=== PATIENT | female | born 1945 | race Caucasian/White ===

== ENCOUNTER 2017-04-24 23:19 | Inpatient (IN) | payer MEDICARE, MEDICAID ==
[2017-04-25] MEDS ORDERED: Labetalol HCl 100 MG/20 ML VIAL ONE (00:19)
[2017-04-25 01:04] LABS: Troponin I 0.029 ng/mL (< 0.028)
[2017-04-25 01:32] VITALS: BMI 45.8
[2017-04-25] MEDS ORDERED: Ondansetron ODT 4 MG TAB SL PRN (02:06)
[2017-04-25] MEDS ORDERED: Acetaminophen 325 MG TAB PO PRN (02:06)
[2017-04-25] MEDS ORDERED: Ondansetron HCl/PF 4 MG/2 ML Vial IVP PRN (02:06)
[2017-04-25] MEDS ORDERED: Milk Of Magnesia 30 ML UDCUP PO PRN (02:19)
[2017-04-25] MEDS ORDERED: Senokot 8.6 MG TAB PO PRN (02:19)
[2017-04-25] MEDS ORDERED: Albuterol Sulfate 2.5 mg/3 ml Neb NEB PRN (02:32)
[2017-04-25] MEDS ORDERED: Carvedilol 25 MG TAB PO SCH (02:45)
[2017-04-25] MEDS ORDERED: Labetalol HCl 100 MG/20 ML VIAL SLOW IVP PRN (03:36)
[2017-04-25 03:39] LABS: #Monocytes 0.2 thou/uL (0.11-0.59); %Basophils 0.3 % (0.0-1.0); %Eosinophils 0.5 % (0.0-10.0); %Lymphocytes 14.1 % (21.0-51.0); %Monocytes 2.3 % (0.0-10.0); Hematocrit 44.5 % (36.0-47.0); Mean Platelet Volume 10.1 fL (7.4-10.4); Red Blood Cell (RBC) Count 5.11 mill/uL (4.20-5.40); White Blood Cell (WBC) Count 7.2 thou/uL (4.8-10.8)
[2017-04-25 03:52] LABS: Troponin I 0.019 ng/mL (< 0.028)
[2017-04-25 04:03] LABS: Phosphorus 3.1 mg/dL (2.3-4.7)
[2017-04-25 04:07] LABS: Anion Gap 15 mmol/L (10-20); BUN (Urea Nitrogen) 13 mg/dL (9.8-20.1); Calc. Creatinine Clearance 155 mL/min (70-130); Calcium 9.3 mg/dL (7.8-10.44); Carbon Dioxide 28 mmol/L (23-31); Chloride 102 mmol/L (98-107); Cholesterol 109 mg/dl (< 200 Desired); Estimated GFR-MDRD Greater than 90; LDL Cholesterol, Calculated 63 mg/dL
[2017-04-25 05:08] LABS: Magnesium 2.3 mg/dL (1.6-2.6)
[2017-04-25] MEDS: Furosemide 40 MG/4 ML VIAL SLOW IVP SCH ×2 (05:50→15:29)
[2017-04-25] MEDS: Potassium Chloride 20 MEQ TAB PO SCH ×2 (08:00→15:27)
[2017-04-25] MEDS ORDERED: Valsartan 80 MG TAB PO SCH ×2 (09:00→18:30)
[2017-04-25] MEDS: Docusate 100 MG CAP PO SCH ×2 (09:06→20:27)
[2017-04-25] MEDS: Carvedilol 25 MG TAB PO SCH ×2 (09:06→20:27)
[2017-04-25] MEDS: Aspirin 325 MG TAB PO SCH (09:06)
[2017-04-25 09:53] LABS: Prothrombin Time 21.5 SEC (12.0-14.7)
[2017-04-25 09:54] LABS: PTT 38.7 SEC (22.9-36.1)
--- NOTE | 2017-04-25 18:37 | HP-2 ---
LOCATION: [facility] in [place], [place] CO-SIGNER: Dr. Veronica Dozier. CODE STATUS: FULL. PRIMARY CARE PHYSICIAN: [facility], Dr. Arely Ames. ATTENDING PHYSICIAN: Dr. Veronica Dozier. RESIDENT PHYSICIAN: Dr. Paul Epstein. HISTORIAN: Patient. CHIEF COMPLAINT: Increasing shortness of breath. HISTORY OF PRESENT ILLNESS: A 71-year-old female with a past medical history of hypertension, hyperl ipidemia prior to CVA and subclinical hyperthyroid presents with a 5-day history of increasing shortn ess of breath, dyspnea on exertion or orthopnea. The patient also reports a recent weight gain, incr eased swelling in bilateral lower extremities. Denies chest pain, nausea, vomiting, diaphoresis, dony rrhea, constipation, abdominal pain, cough, congestion or pleuritic type chest pain. No hemoptysis. Patient reports her signs and symptoms are worse with exertion and relieved with rest. In the ER, t he patient was given 40 mg IV Lasix. PAST MEDICAL HISTORY: 1. Hypertension. 2. Hyperlipidemia. 3. History of cerebrovascular accident. 4. Subclinical hyperthyroid. 5. Depression. PAST SURGICAL HISTORY: 1. Left total knee. 2. Cholecystectomy. 3. Hysterectomy. ALLERGIES: 1. PHENOBARBITAL. 2. TRAMADOL. 3. IBUPROFEN. 4. PHENERGAN. MEDICATIONS: 1. Coreg 12.5 mg p.o. b.i.d. 2. Paxil 20 mg p.o. daily. 3. Zocor 10 mg at bedtime. 4. Amitriptyline 25 mg daily. 5. Paroxetine 20 mg daily. 6. Albuterol nebulizers as needed. 7. Valsartan 160 mg daily. FAMILY HISTORY: Maternal type 2 diabetes. SOCIAL HISTORY: Nonsmoker, nondrinker. Denies drug use now. REVIEW OF SYSTEMS: GENERAL: Patient complains of weight change. Denies fever, chills, night sweats or fatigue. ENT: Denies nasal congestion, rhinorrhea or sore throat. RESPIRATORY: Shortness of breath, exercise intolerance. Denies cough or congestion. CARDIOVASCULAR: Positive chest pain, palpitations. Complains of edema and orthopnea. Denies chest pain, palpitations and paroxysmal nocturnal dyspnea. GASTROINTESTINAL: Denies nausea, vomiting, diarrhea, constipation or abdominal pain. GENITOURINARY: Denies dysuria or polyuria. MUSCULOSKELETAL: Complains of swelling. Denies arthritis or arthralgias. NEUROLOGIC: Denies weakness or syncope. PSYCHIATRIC: Complains of a history of depression, currently controlled. PHYSICAL EXAMINATION: VITAL SIGNS: Blood pressure 178/81, pulse 74, respiratory rate 18, T-max 98.1 and pulse ox 95% on 3 liters nasal cannula. Current weight 121 kilograms. GENERAL: The patient alert and oriented, in no acute distress. Well-developed, obese and appropriat sanjeev interactive. HEENT: Pupils are equal, round and reactive to light with accommodation. Extraocular muscles intact . Conjunctivae within normal limits. NECK: Supple, without lymphadenopathy. No thyromegaly. No evidence of JVD. No hepatojugular reflu x. CARDIAC: Regular rate and rhythm. No murmurs, rubs or gallops. Radial pulse 2+. Pedal pulse 2+. RESPIRATORY: Normal effort. No retractions. Lungs are clear to auscultation bilaterally. ABDOMEN: Soft and nontender. Normoactive bowel sounds in all 4 quadrants. No masses, distention or organomegaly. EXTREMITIES: No clubbing or cyanosis. Patient does have bilateral 2+ pitting edema of the lower ext remities. MUSCULOSKELETAL: Structure within normal limits. Tone within normal limits. NEUROLOGIC: No focal deficits. GCS 15. PSYCHIATRIC: The patient is appropriately interactive. LABORATORY AND IMAGING RESULTS: White blood cells 7.1, hemoglobin 13.5, hematocrit 43.7 and platelet s 222. Sodium 140, potassium 3.8, chloride 101, bicarb 34, BUN 14, creatinine 0.6, glucose 99, calci um 9, total protein 6.6, albumin 3.8, AST 19, ALT 25, alkaline phosphatase 87, total bilirubin 0.9. PT 335, INR is 3.1. Lactic acid 0.8. BNP 235, troponin 0.029. UA showed 1+ blood, 3+ protein, negative leukocyte esterase, negative nitrite, negative ketone, negat rajiv glucose, negative wbc's and negative bacteria. EKG showed T-wave inversion in leads V1 to V6, otherwise, normal sinus rhythm. Chest x-ray showed moderate cardiomegaly with severe congestive changes. ASSESSMENT AND PLAN: 1. Congestive heart failure, new onset acute exacerbation. We will order a morning echocardiogram. The patient will be continued on aspirin, statin, losartan and Coreg. Monitor ins and outs and cont inue IV Lasix 40 mg q.12 hours. We will check daily weight. Repeat daily BMP, check magnesium, phosp horus and TSH level. Trend troponins and repeat morning EKG. 2. Acute hypoxic respiratory failure. The patient's oxygen saturation will be maintained over 90% w ith supplemental O2. We will monitor for increasing requirements and changes in respiratory status. 3. Hypertension. Continue home medications. 4. Hyperlipidemia. Continue home medications. 5. History of cerebrovascular accident. Continue home medications. 6. Depression. Continue home medications. 7. Subclinical hyperthryroid. Check a TSH. 8. Obstructive sleep apnea, on CPAP. We will continue patient as an inpatient. 9. Prophylaxis. Patient anticoagulated with Coumadin, will be placed in sequential compression tam lupe and given Tums p.r.n. for gastrointestinal prophylaxis. DISPOSITION AND LENGTH OF HOSPITAL STAY: Greater than or equal to 2 days. Patient is stable. Symptomatic medications will be provided. History and physical exam as well as management was discussed with Dr. Veronica Dozier, who agrees with the above history, physical exam, assessment and plan otherwise noted in her addendum.
[2017-04-25] MEDS: Simvastatin 20 MG TAB PER TUBE SCH (20:27)
[2017-04-25] MEDS: Amitriptyline HCl 25 MG TAB PO SCH (20:27)
[2017-04-25] MEDS ORDERED: Carvedilol 6.25 MG TAB PO SCH (21:00)
[2017-04-25] MEDS ORDERED: Atorvastatin Calcium 40 MG TAB PO SCH (21:00)
--- NOTE | 2017-04-25 22:18 | PDOC.EVN ---
Event Note - Event Note Event Note: Paged regarding 18 beats of V-tach that the patient had today at 1814. Patient did feel some palpitations at that time, however resolved. Denied any chest pain , SOB, nausea, vomiting, diaphoresis, dizziness, lightheadedness at that time. Patient's Vasartan was increased today. May need to consider increasing Coreg in am.
--- NOTE | 2017-04-25 23:21 | ADD-HP ---
DATE OF SERVICE: 04/25/2017 CHIEF COMPLAINT: Shortness of breath. HISTORY OF PRESENT ILLNESS: The patient is a 71-year-old female with a past medical history of hypertension, hyperlipidemia with prior cerebrovascular accident of subclinical hyperthyroidism, who presented with 5-day history of increasing shortness of breath, dyspnea on exertion, and orthopnea. The patient noticed a weight gain in the past week or so as well as swelling in her bilateral lower extremities. She presented to the ER and had a BNP of 235. Chest x-ray which showed moderate cardiomegaly with severe congestive changes. EKG showed T-wave inversions in leads V1 through V6. UA was significant for proteinuria, but there is no leukocyte esterase, nitrites or bacteria. The patient was admitted for new onset CHF. She has been given IV Lasix for diuresis and has oxygen as needed for hypoxia. An echo has been ordered on the patient and she will continue her beta-eusebio, GUERA inhibitor, statin, and aspirin. Cardiology has been consulted. For acute hypoxic respiratory failure , the patient once again is on oxygen and we will wean this as we are able to. For the remainder of the assessment and plan, please see the resident's dictation. I have personally reviewed and discussed the entire history, physical, assessment and plan with Dr. Epstein, repeated pertinent portions myself and agree with his documentation. REJI
[2017-04-26 05:55] LABS: Anion Gap 13 mmol/L (10-20); BUN (Urea Nitrogen) 17 mg/dL (9.8-20.1); Calc. Creatinine Clearance 147 mL/min (70-130); Calcium 9.3 mg/dL (7.8-10.44); Carbon Dioxide 33 mmol/L (23-31); Chloride 99 mmol/L (98-107); Estimated GFR-MDRD 89
[2017-04-26] MEDS ORDERED: Warfarin Sodium 3 MG TAB PO SCH ×2 (06:00→17:00)
--- NOTE | 2017-04-26 06:29 | PDOC.FM ---
- Subjective Subjective: Nursing staff reports 18 beats of Vtach overnight. Patient endorses some palpitations, but otherwise stable at that time. This morning, patient is feeling well. She reports she slept well last night with her own home cpap. Denies any CP, SOB, and reports greatly improved LE swelling. - Objective MAR Reviewed: Yes Vital Signs & Weight: Vital Signs (12 hours) Temp Pulse Resp BP Pulse Ox 04/26/17 04:53 97.6 F 68 18 156/68 H 92 L 04/25/17 23:37 98.1 F 76 18 155/70 H 92 L 04/25/17 20:25 98.2 F 72 18 158/69 H 90 L Weight Weight 119.567 kg I&O: 04/24/17 04/25/17 04/26/17 06:59 06:59 06:59 Intake Total 960 Output Total 500 2971 Balance -528 -7712 Result Diagrams: 04/25/17 03:25 04/26/17 04:34 <Abby Wall - Last Filed: 04/26/17 10:19> - Objective Vital Signs & Weight: Vital Signs (12 hours) Temp Pulse Resp BP Pulse Ox 04/26/17 08:29 97.4 F L 70 17 165/72 H 92 L 04/26/17 08:00 97.4 F L 70 17 92 L 04/26/17 04:53 97.6 F 68 18 156/68 H 92 L 04/25/17 23:37 98.1 F 76 18 155/70 H 92 L Weight Weight 119.567 kg I&O: 04/25/17 04/26/17 04/27/17 06:59 06:59 06:59 Intake Total 960 240 Output Total 500 2076 Balance -089 -2493 497 Result Diagrams: 04/25/17 03:25 04/26/17 04:34 <Veronica Dozier - Last Filed: 04/26/17 11:28> Phys Exam - Physical Examination Constitutional: NAD HEENT: moist MMs Neck: no nodes, no JVD, supple, full ROM Respiratory: no wheezing, no rales, no rhonchi, clear to auscultation bilateral Cardiovascular: RRR, no significant murmur Gastrointestinal: soft, non-tender 1+ b/l LE edema Neurological: non-focal, normal sensation, moves all 4 limbs Psychiatric: normal affect, A&O x 3 Skin: cap refill <2 seconds <Abby Wall - Last Filed: 04/26/17 10:19> Dx/Plan (1) V-tach Code(s): I47.2 - VENTRICULAR TACHYCARDIA Status: Resolved (2) Diastolic CHF, acute Code(s): I50.31 - ACUTE DIASTOLIC (CONGESTIVE) HEART FAILURE Status: Acute (3) Hypertensive urgency Code(s): I16.0 - HYPERTENSIVE URGENCY Status: Resolved (4) Hypertension Code(s): I10 - ESSENTIAL (PRIMARY) HYPERTENSION Status: Chronic (5) Hyperlipidemia Code(s): E78.5 - HYPERLIPIDEMIA, UNSPECIFIED Status: Chronic (6) History of CVA (cerebrovascular accident) Code(s): Z86.73 - PRSNL HX OF TIA (TIA), AND CEREB INFRC W/O RESID DEFICITS Status: Chronic (7) Obstructive sleep apnea of adult Code(s): G47.33 - OBSTRUCTIVE SLEEP APNEA (ADULT) (PEDIATRIC) Status: Chronic (8) Depression Code(s): F32.9 - MAJOR DEPRESSIVE DISORDER, SINGLE EPISODE, UNSPECIFIED Status : Chronic (9) Acute respiratory failure with hypoxia Code(s): J96.01 - ACUTE RESPIRATORY FAILURE WITH HYPOXIA Status: Resolved - Plan Plan: VTach - Will increase Coreg to 25mg BID - Mg pending - Repleting K for low K at 3.3 this morning - Will await recs from Dr. Lin Acute Hypoxic Respiratory Failure 2/2 New Onset diastolic CHF - Originally requiring 3L of O2, only requiring 1L this morning, will continue to wean this afternoon and do a O2 walking trial today - Cardiology consult, Dr. Lin will manage outpatient, appreciate recs - Likely due to chronic KARL, continue to wear CPAP - Coreg 12.5 BID - Zocor - Lasix 40mg PO Hypertensive Urgency - Pressures have been hard to control, increased to Coreg 25mg BID dosing and Valsartan to 320mg daily - Will continue to monitor VS with these changes HTN - See changes above HLD - Continue home Zocor - FLP wnl KARL on CPAP - continue CPAP at night Depression - Continue Amytriptyline Hx of CVA - will continue Coumadin for anticoagulation - INR 1.8, patient missed a dose of Coumadin prior to arriving at the hospital <Abby Wall - Last Filed: 04/26/17 10:19> Attending Addendum - Attending Addendum I personally evaluated the patient and discussed the management with Dr. Wall. I agree with the History, Examination, Assessment and Plan documented above with any addition or exceptions noted below. The patient using cpap during our visit. Still working on weaning O2. The patient had an 18 beat run ov vtach last night. Replacing potassium. Will check magnesium. The patient's coreg is being increased. Will continue lasix. Appreciate cardiology recs. <Veronica Dozier - Last Filed: 04/26/17 11:28>
[2017-04-26] MEDS ORDERED: Potassium Chloride 40 MEQ in Sodium Chloride 0.9% 500 ML IVPB SCH (06:45)
[2017-04-26] MEDS: Potassium Chloride 20 MEQ TAB PO SCH ×2 (08:19→17:52)
[2017-04-26] MEDS: Aspirin 325 MG TAB PO SCH (08:19)
[2017-04-26] MEDS: Furosemide 40 MG TAB PO SCH (08:19)
[2017-04-26] MEDS: Carvedilol 25 MG TAB PO SCH ×2 (08:19→17:52)
[2017-04-26] MEDS: PARoxetine 20 MG TAB PO SCH (08:19)
[2017-04-26] MEDS: Valsartan 80 MG TAB PO SCH (08:19)
[2017-04-26] MEDS: Docusate 100 MG CAP PO SCH ×2 (08:20→20:42)
[2017-04-26] MEDS ORDERED: Non-Formulary Item 1 EACH (Valsartan [Valsartan] 160 MG) PO SCH (09:00)
[2017-04-26] MEDS ORDERED: Carvedilol 6.25 MG TAB PO SCH (10:30)
--- NOTE | 2017-04-26 13:32 | CON ---
DATE OF CONSULTATION: 04/26/2017 DATE OF ADMISSION: 04/25/2017 REASON FOR CONSULTATION: Shortness of breath. HISTORY OF PRESENT ILLNESS: Ms. Corea is a very pleasant 71-year-old woman with no previous history o f COPD, recently presented with shortness of breath. She complained of lower extremity edema in mari tion with PND, no orthopnea present. No chest pain or pressure, all other associated symptoms are no aubrey. She was given IV Lasix and has had significant improvement in symptoms. PAST MEDICAL HISTORY: CVA, hypertension, hyperlipidemia, depression. PAST SURGICAL HISTORY: Knee surgery, cholecystectomy, hysterectomy. ALLERGIES: PHENERGAN, IBUPROFEN, AND TRAMADOL. HOME MEDICATIONS: Include Coreg, Paxil, Zocor, amitriptyline, albuterol, losartan. SOCIAL HISTORY: No current tobacco or alcohol use. REVIEW OF SYSTEMS: Ten-point review of systems is reviewed and as above, otherwise negative. PHYSICAL EXAMINATION: VITAL SIGNS: Blood pressure 165/72, pulse 70, temperature 97.4. GENERAL: Patient is a pleasant female who is in no acute distress. The patient appears her stated a ge. She does appear obese with BMI of 45. NEUROLOGIC: The patient is alert and oriented times 3 with no focal neurologic deficits. HEENT: Sclerae without icterus. Mouth has moist mucous membranes with normal pallor. NECK: No JVD. Carotid upstroke brisk. No bruits bilaterally. LUNGS: Clear to auscultation with unlabored respirations. BACK: No scoliosis or kyphosis. CARDIAC: Regular rate and rhythm with normal S1 and S2. No S3 or S4 noted. No significant rubs, mu rmurs, thrills, or gallops noted throughout the precordium. PMI is not displaced. There is no connor ternal heave. ABDOMEN: Soft, nontender, nondistended. No peritoneal signs present. No hepatosplenomegaly. No ab normal striae. EXTREMITIES: 2+ femoral and 2+ dorsalis pedis pulses. No cyanosis, clubbing, or edema. SKIN: No gross abnormalities. PERTINENT LABORATORY DATA: Hemoglobin 13.6, creatinine 0.65. Troponin negative. IMPRESSION: 1. Shortness of breath. 2. Hypertension. 3. Hyperlipidemia. 4. Obstructive sleep apnea. RECOMMENDATIONS: The etiology to her current symptoms are known. Her LVEF does appear normal. She does have diastolic dysfunction. She has diuresed with significant improvement in symptoms. At this point, we would continue carvedilol as prescribed. We will decrease her aspirin to 81 q.a.m. Rose e IV Lasix to p.o. Lasix. Continue Coumadin as prescribed.
--- NOTE | 2017-04-26 14:00 | RAD ---
PA AND LATERAL CHEST: Date: 04/26/17 HISTORY: Hypoxia. COMPARISON: 08/19/13. FINDINGS: Cardiac silhouette is enlarged and there has been interval enlargement of the cardiac silhouette comp ared to the prior exam. Pulmonary vasculature is within normal limits and the lungs are clear. There is mild elevation of the right hemidiaphragm. There is a remote fracture and deformity of the right p roximal humerus in the region of the humeral neck. Vascular calcifications seen in thoracic aorta. There are compression fractures involving the superior end plate of what is thought to be the L1 and L4 vertebral bodies. Exact ages of these compression deformities is unable to be determined on this e xam. Surgical clips overlie the right upper quadrant. IMPRESSION: 1. Cardiomegaly. 2. No acute cardiopulmonary process. 3. Elevation right hemidiaphragm. 4. Mild compression fracture involving the superior end plate of what is thought to be the L1 and L4 vertebral bodies, of which the exact ages of these fractures are indeterminate based on plain film e valuation. POS: [facility]
--- NOTE | 2017-04-26 17:20 | PRG ---
DATE OF SERVICE: 04/26/2017 SUBJECTIVE: Ms. Corea is doing well. She feels much better. She has diuresed overnight on IV Lasix. She did have a run of nonsustained VT. Her potassium was at lower limits of normal, magnesium leve l is within normal limits. OBJECTIVE: GENERAL: Patient is a pleasant female who is in no acute distress. The patient appears her stated a ge. VITAL SIGNS: Blood pressure 165/72, pulse 70, temperature 97.4. I's and O's are -2215 and has lost 4 pounds in the last 24 hours. NEUROLOGIC: The patient is alert and oriented times 3 with no focal neurologic deficits. HEENT: Sclerae without icterus. Mouth has moist mucous membranes with normal pallor. NECK: No JVD. Carotid upstroke brisk. No bruits bilaterally. LUNGS: Clear to auscultation with unlabored respirations. BACK: No scoliosis or kyphosis. CARDIAC: Regular rate and rhythm with normal S1 and S2. No S3 or S4 noted. No significant rubs, mu rmurs, thrills, or gallops noted throughout the precordium. PMI is not displaced. There is no connor ternal heave. ABDOMEN: Soft, nontender, nondistended. No peritoneal signs present. No hepatosplenomegaly. No ab normal striae. EXTREMITIES: 2+ femoral and 2+ dorsalis pedis pulses. No cyanosis, clubbing, or edema. SKIN: No gross abnormalities. PERTINENT LABORATORY DATA: Potassium 3.3. IMPRESSION: 1. Shortness of breath. 2. Nonsustained ventricular tachycardia. RECOMMENDATIONS: The patient's LVEF is normal. She is on beta-eusebio therapy. She does have a pot assium of 3.3. We will continue close observation. If she has second run, may consider noninvasive stress study. Her BMI is greater than 40 and will need to be a 2-day study if is performed. This could also be performed as an outpatient given normal LVEF and no current symptoms. I will also check her INR.
[2017-04-26] MEDS: Warfarin Sodium 3 MG TAB PO SCH (17:54)
[2017-04-26] MEDS: Simvastatin 20 MG TAB PER TUBE SCH (20:41)
[2017-04-26] MEDS: Amitriptyline HCl 25 MG TAB PO SCH (20:41)
[2017-04-27 03:16] LABS: Hematocrit 42.6 % (36.0-47.0)
[2017-04-27 03:36] LABS: Anion Gap 12 mmol/L (10-20); BUN (Urea Nitrogen) 20 mg/dL (9.8-20.1); Calc. Creatinine Clearance 139 mL/min (70-130); Calcium 9.4 mg/dL (7.8-10.44); Carbon Dioxide 32 mmol/L (23-31); Chloride 103 mmol/L (98-107); Estimated GFR-MDRD 85
--- NOTE | 2017-04-27 06:03 | PDOC.FM ---
- Subjective Subjective: Patient is doing well. Was seen by Dr. Lin yesterday and recommended stress test today. Patient slept well last night, denies SOB, CP, palpitations , and wheezing. - Objective MAR Reviewed: Yes Vital Signs & Weight: Vital Signs (12 hours) Temp Pulse Resp BP BP Pulse Ox 04/27/17 04:04 97.2 F L 74 20 162/72 H 97 04/27/17 01:03 97 04/27/17 00:10 98.4 F 66 20 169/77 H 97 04/26/17 20:00 98.0 F 74 20 143/69 H 97 Weight Weight 121.018 kg I&O: 04/25/17 04/26/17 04/27/17 06:59 06:59 06:59 Intake Total 960 2300 Output Total 500 3175 1220 Balance -500 -7851 2473 Result Diagrams: 04/27/17 03:06 04/27/17 03:06 <Abby Wall - Last Filed: 04/27/17 10:00> - Objective Vital Signs & Weight: Vital Signs (12 hours) Temp Pulse Resp BP Pulse Ox 04/27/17 15:56 65 04/27/17 15:55 189/90 H 04/27/17 15:53 177/82 H 04/27/17 15:49 98.9 F 65 20 201/103 H 98 04/27/17 12:00 98.5 F 70 16 166/78 H 99 04/27/17 10:53 198/110 H 04/27/17 09:30 98.5 F 70 16 96 04/27/17 08:20 97.8 F 77 18 148/87 H 96 Weight Weight 121.018 kg I&O: 04/26/17 04/27/17 04/28/17 06:59 06:59 06:59 Intake Total 960 2300 Output Total 3175 1220 Balance -2219 1887 Result Diagrams: 04/27/17 03:06 04/27/17 03:06 <Veronica Dozier - Last Filed: 04/27/17 16:37> Phys Exam - Physical Examination Constitutional: NAD HEENT: moist MMs Neck: no JVD, supple, full ROM Respiratory: no wheezing, no rales, no rhonchi, clear to auscultation bilateral Cardiovascular: RRR, no significant murmur Gastrointestinal: soft, non-tender, no distention Musculoskeletal: pulses present 1+ pitting edema b/l Neurological: non-focal Psychiatric: A&O x 3 <Abby Wall - Last Filed: 04/27/17 10:00> Dx/Plan (1) V-tach Code(s): I47.2 - VENTRICULAR TACHYCARDIA Status: Resolved (2) Diastolic CHF, acute Code(s): I50.31 - ACUTE DIASTOLIC (CONGESTIVE) HEART FAILURE Status: Acute (3) Hypertensive urgency Code(s): I16.0 - HYPERTENSIVE URGENCY Status: Resolved (4) Hypertension Code(s): I10 - ESSENTIAL (PRIMARY) HYPERTENSION Status: Chronic (5) Hyperlipidemia Code(s): E78.5 - HYPERLIPIDEMIA, UNSPECIFIED Status: Chronic (6) History of CVA (cerebrovascular accident) Code(s): Z86.73 - PRSNL HX OF TIA (TIA), AND CEREB INFRC W/O RESID DEFICITS Status: Chronic (7) Obstructive sleep apnea of adult Code(s): G47.33 - OBSTRUCTIVE SLEEP APNEA (ADULT) (PEDIATRIC) Status: Chronic (8) Depression Code(s): F32.9 - MAJOR DEPRESSIVE DISORDER, SINGLE EPISODE, UNSPECIFIED Status : Chronic (9) Acute respiratory failure with hypoxia Code(s): J96.01 - ACUTE RESPIRATORY FAILURE WITH HYPOXIA Status: Resolved - Plan Plan: VTach - Will increase Coreg to 25mg BID - Mg wnl, K repleated yesterday, normal today. - No more episodes overnight. - stress test today. Acute Hypoxic Respiratory Failure 2/2 New Onset diastolic CHF - Originally requiring 3L of O2, on RA at rest but failed walking trial - Failed walking trial with desats into the 70's, CM to obtain home o2 - Repeat CXR to evaluate degree of pulmonary edema is negative for edema - Cardiology consult, Dr. Lin will manage outpatient, appreciate recs - Likely due to chronic KARL, continue to wear CPAP - Coreg 25mg BID - Zocor - Lasix 40mg PO BID Hypertensive Urgency,resolved - Pressures have been hard to control, increased to Coreg 25mg BID dosing and Valsartan to 320mg daily - Blood pressures continue to be high with these doses, increased Lasix to 40mg PO BID - Will continue to monitor VS with these changes HTN - See changes above HLD - Continue home Zocor - FLP wnl KARL on CPAP - continue CPAP at night Depression - Continue Amytriptyline Hx of CVA - will continue Coumadin for anticoagulation - INR 1.8, patient missed a dose of Coumadin prior to arriving at the hospital - Pharmacy to dose coumadin due to subtherapeutic INR <Abby Wall - Last Filed: 04/27/17 10:00> Attending Addendum - Attending Addendum I personally evaluated the patient and discussed the management with Dr. Wall. I agree with the History, Examination, Assessment and Plan documented above with any addition or exceptions noted below. The patient was seen down at stress test. She notes her lower extremity edema is improved. No more v-tach overnight. Will continue diuresis. <Veronica Dozier - Last Filed: 04/27/17 16:37>
[2017-04-27] MEDS: Valsartan 80 MG TAB PO SCH (10:52)
[2017-04-27] MEDS: Potassium Chloride 20 MEQ TAB PO SCH ×2 (10:52→16:34)
[2017-04-27] MEDS: Furosemide 40 MG TAB PO SCH ×3 (10:52→14:58)
[2017-04-27] MEDS: Carvedilol 25 MG TAB PO SCH ×2 (10:52→16:34)
[2017-04-27] MEDS: Aspirin 325 MG TAB PO SCH (10:53)
[2017-04-27] MEDS: PARoxetine 20 MG TAB PO SCH (10:53)
[2017-04-27] MEDS: Docusate 100 MG CAP PO SCH ×2 (10:53→20:48)
[2017-04-27] MEDS ORDERED: Regadenoson 0.4 MG/5 ML SYRINGE ONE (15:41)
[2017-04-27] MEDS: hydrALAZINE 20 MG/ML VIAL SLOW IVP PRN (15:56)
[2017-04-27] MEDS ORDERED: Warfarin Sodium 3 MG TAB PO SCH (17:00)
[2017-04-27] MEDS: Amitriptyline HCl 25 MG TAB PO SCH (20:48)
[2017-04-27] MEDS: Simvastatin 20 MG TAB PER TUBE SCH (20:48)
[2017-04-28 06:04] LABS: Anion Gap 10 mmol/L (10-20); BUN (Urea Nitrogen) 14 mg/dL (9.8-20.1); Calc. Creatinine Clearance 148 mL/min (70-130); Calcium 9.5 mg/dL (7.8-10.44); Carbon Dioxide 33 mmol/L (23-31); Chloride 101 mmol/L (98-107); Estimated GFR-MDRD Greater than 90
[2017-04-28] MEDS ORDERED: Simvastatin 20 MG TAB PO SCH (08:07)
[2017-04-28] MEDS: hydrALAZINE 20 MG/ML VIAL SLOW IVP PRN (09:16)
[2017-04-28] MEDS: Furosemide 40 MG TAB PO SCH ×2 (09:26→13:06)
[2017-04-28] MEDS: Docusate 100 MG CAP PO SCH ×2 (09:26→20:25)
[2017-04-28] MEDS: PARoxetine 20 MG TAB PO SCH (09:26)
[2017-04-28] MEDS: Potassium Chloride 20 MEQ TAB PO SCH ×2 (09:26→17:51)
[2017-04-28] MEDS: Valsartan 80 MG TAB PO SCH (09:27)
--- NOTE | 2017-04-28 10:25 | NM ---
MYOCARDIAL PERFUSION STUDY: DATE: 04/27/17. HISTORY: Shortness of breath and NSVT. RADIOPHARMACEUTICALS: 31.6 mCi Technetium 99m sestamibi, IV at stress, and 30.1 mCi Technetium 99m sestamibi, IV at rest. MEDICATIONS: 0.4 mg of LexiScan, IV. FINDINGS: There is a very small area of mildly diminished uptake of radiotracer seen within the distal anterior wall and at the apex on the stress acquisition with a suggestion of mild reversibility on resting ac quisition. No additional reversible defects are seen between the stress and resting acquisitions. R otating planar images do demonstrate breast attenuation. Gated images show normal ventricular wall m otion and wall thickening. The calculated left ventricular ejection fraction is 62%. IMPRESSION: 1. Equivocal myocardial perfusion study for a small area of mild ischemia involving the distal anter ior wall and apex. 2. Normal left ventricular ejection fraction of 62%. POS: [facility]
--- NOTE | 2017-04-28 10:51 | PDOC.FM ---
- Subjective Subjective: No complaints this morning. Pt had just completed her stress test. Discussed with patient that we would talk to cardiology about recommendations once her stress test results were back. - Objective MAR Reviewed: Yes Vital Signs & Weight: Vital Signs (12 hours) Temp Pulse Resp BP BP Pulse Ox 04/28/17 09:20 97.7 F 61 20 186/84 H 99 04/28/17 08:00 97.7 F 61 20 99 04/28/17 00:00 97.4 F L 64 18 173/76 H 94 L Weight Weight 119.431 kg I&O: 04/27/17 04/28/17 04/29/17 06:59 06:59 06:59 Intake Total 2300 1130 Output Total 1220 2250 Balance 1080 -1120 Result Diagrams: 04/27/17 03:06 04/28/17 04:59 <Tennille Clemons - Last Filed: 04/28/17 12:59> - Objective Vital Signs & Weight: Vital Signs (12 hours) Temp Pulse Pulse Pulse Resp BP BP 04/28/17 15:53 98.4 F 80 22 H 04/28/17 12:45 99.5 F 74 18 04/28/17 09:38 71 80 203/91 H 175/77 H 04/28/17 09:20 97.7 F 61 20 04/28/17 08:00 97.7 F 61 20 BP Pulse Ox Pulse Ox Pulse Ox 04/28/17 15:53 132/69 100 04/28/17 12:45 186/83 H 98 04/28/17 09:38 98 100 04/28/17 09:20 186/84 H 99 04/28/17 08:00 99 Weight Weight 119.431 kg I&O: 04/27/17 04/28/17 04/29/17 06:59 06:59 06:59 Intake Total 2300 1130 Output Total 1220 2250 Balance 3537 -1120 Result Diagrams: 04/27/17 03:06 04/28/17 04:59 <Veronica Dozier - Last Filed: 04/28/17 17:49> Phys Exam - Physical Examination Constitutional: NAD HEENT: PERRLA, moist MMs, sclera anicteric Neck: supple, full ROM no increased work of breathing normal sinus rhythm Psychiatric: normal affect, A&O x 3 <Gigi Clemonsna - Last Filed: 04/28/17 12:59> Dx/Plan (1) Diastolic CHF, acute Code(s): I50.31 - ACUTE DIASTOLIC (CONGESTIVE) HEART FAILURE Status: Acute (2) Depression Code(s): F32.9 - MAJOR DEPRESSIVE DISORDER, SINGLE EPISODE, UNSPECIFIED Status : Chronic (3) History of CVA (cerebrovascular accident) Code(s): Z86.73 - PRSNL HX OF TIA (TIA), AND CEREB INFRC W/O RESID DEFICITS Status: Chronic (4) Hyperlipidemia Code(s): E78.5 - HYPERLIPIDEMIA, UNSPECIFIED Status: Chronic (5) Hypertension Code(s): I10 - ESSENTIAL (PRIMARY) HYPERTENSION Status: Chronic (6) Obstructive sleep apnea of adult Code(s): G47.33 - OBSTRUCTIVE SLEEP APNEA (ADULT) (PEDIATRIC) Status: Chronic (7) Acute respiratory failure with hypoxia Code(s): J96.01 - ACUTE RESPIRATORY FAILURE WITH HYPOXIA Status: Resolved - Plan Plan: Hx of VTach on 04/25 - Coreg to 25mg BID, held this morning while pt completed stress test -stress test positive for anterior ischemia, will follow with cardiology recommendations Acute Hypoxic Respiratory Failure 2/2 New Onset diastolic CHF - Originally requiring 3L of O2, on RA at rest but failed walking trial - Failed walking trial with desats into the 70's, CM to obtain home o2 - Likely due to chronic KARL, continue to wear CPAP - Coreg 25mg BID - Zocor - Lasix 40mg PO BID New onset CHF, diastolic-see above stress test positive for anterior ischemia will follow-up with cardiology recommendations Hypertensive Urgency,resolved - Coreg 25mg BID dosing and Valsartan to 320mg daily - Lasix to 40mg PO BID - Will continue to monitor VS with these changes HTN - pressure elevated but bb was held the past two days in the morning for stress test. Will continue to monitor. Pt is on highest dose of valsartan. Will consider adding HCTZ to regimen if pressures are persistently elevated. HLD - Continue home Zocor - FLP wnl KARL on CPAP - continue CPAP at night Depression - Continue Amytriptyline Hx of CVA - will continue Coumadin for anticoagulation - INR 1.8, patient missed a dose of Coumadin prior to arriving at the hospital - Pharmacy to dose coumadin due to subtherapeutic INR <Tennille Clemons - Last Filed: 04/28/17 12:59> Attending Addendum - Attending Addendum I personally evaluated the patient and discussed the management with Dr. Clemons. I agree with the History, Examination, Assessment and Plan documented above with any addition or exceptions noted below. The patient was seen after stress test. Results pending. LE edema is continuing to improve. Further mgmt once stress test results are known. <Veronica Dozier - Last Filed: 04/28/17 17:49>
--- NOTE | 2017-04-28 16:43 | PDOC.CTH ---
Cardiology Progress Note - Subjective She is doing well. No new issues. - Objective Vital Signs Temp Pulse Pulse Pulse Resp BP BP 04/28/17 15:53 98.4 F 80 22 H 04/28/17 12:45 99.5 F 74 18 04/28/17 09:38 71 80 203/91 H 175/77 H 04/28/17 09:20 97.7 F 61 20 04/28/17 08:00 97.7 F 61 20 BP Pulse Ox Pulse Ox Pulse Ox 04/28/17 15:53 132/69 100 04/28/17 12:45 186/83 H 98 04/28/17 09:38 98 100 04/28/17 09:20 186/84 H 99 04/28/17 08:00 99 Weight 263 lb 4.8 oz 04/27/17 04/28/17 04/29/17 06:59 06:59 06:59 Intake Total 2300 1130 Output Total 1220 2250 Balance 1080 -1120 - Physical Examination General/Neuro: alert & oriented x3, NAD Neck: no JVD present Lungs: unlabored respirations Heart: RRR Abdomen: NT/ND Extremities: + edema B (Trace) - Telemetry Telemetry Rhythm: NSR - Labs Result Diagrams: 04/27/17 03:06 04/28/17 04:59 Troponin/CKMB Troponin I 0.019 ng/mL (< 0.028) 04/25/17 03:25 - Assessment/Plan 1. Nopn sustained VRT 2. Equivocal MPI with distal anterior to apical ischemia. PLAN - Will plan on [facility] Sunday.
[2017-04-28] MEDS: Warfarin Sodium 3 MG TAB PO SCH (17:52)
[2017-04-28] MEDS: Amitriptyline HCl 25 MG TAB PO SCH (20:25)
[2017-04-28] MEDS: Simvastatin 5 MG TAB PO SCH (20:25)
[2017-04-29 06:09] LABS: Prothrombin Time 18.7 SEC (12.0-14.7)
[2017-04-29 06:29] LABS: Anion Gap 11 mmol/L (10-20); BUN (Urea Nitrogen) 18 mg/dL (9.8-20.1); Calc. Creatinine Clearance 126 mL/min (70-130); Calcium 9.7 mg/dL (7.8-10.44); Carbon Dioxide 33 mmol/L (23-31); Chloride 100 mmol/L (98-107); Estimated GFR-MDRD 78
--- NOTE | 2017-04-29 08:42 | EKG ---
Test Reason : Blood Pressure : / mmHG Vent. Rate : 075 BPM Atrial Rate : 075 BPM P-R Int : 184 ms QRS Dur : 098 ms QT Int : 450 ms P-R-T Axes : -06 -77 -58 degrees QTc Int : 502 ms Sinus rhythm with Premature atrial complexes with Abberant conduction Left axis deviation Incomplete right bundle branch block Anterior infarct (cited on or before 18-MAY-2013) Abnormal ECG When compared with ECG of 19-MAY-2013 06:47, Abberant conduction is now Present Questionable change in QRS axis Inverted T waves have replaced nonspecific T wave abnormality in Lateral leads QT has lengthened Confirmed by Alexander PIZANO ([id number]) on 04/29/2017 8:42:17 AM Referred By: YOKO TOVAR Confirmed By:Alexander PIZANO
[2017-04-29] MEDS: Valsartan 80 MG TAB PO SCH (09:59)
[2017-04-29] MEDS: Docusate 100 MG CAP PO SCH ×2 (10:00→20:00)
[2017-04-29] MEDS: Carvedilol 25 MG TAB PO SCH ×2 (10:00→17:19)
[2017-04-29] MEDS: Furosemide 40 MG TAB PO SCH ×2 (10:00→14:21)
[2017-04-29] MEDS: PARoxetine 20 MG TAB PO SCH (10:00)
[2017-04-29] MEDS: Potassium Chloride 20 MEQ TAB PO SCH ×2 (10:00→17:19)
--- NOTE | 2017-04-29 10:20 | PDOC.FM ---
- Subjective Subjective: No acute events overnight. Pt on cpap overnight. No complaints this morning. - Objective MAR Reviewed: Yes Vital Signs & Weight: Vital Signs (12 hours) Temp Pulse Resp BP Pulse Ox 04/29/17 04:00 97.5 F L 71 20 150/73 H 93 L Weight Weight 116.392 kg I&O: 04/28/17 04/29/17 04/30/17 06:59 06:59 06:59 Intake Total 1130 720 Output Total 2250 2550 Balance -1120 -1830 Result Diagrams: 04/27/17 03:06 04/29/17 05:22 <Tennille Clemons - Last Filed: 04/29/17 10:26> - Objective Vital Signs & Weight: Vital Signs (12 hours) Temp Pulse Pulse Pulse Resp BP BP 04/29/17 12:58 98.6 F 70 18 04/29/17 10:10 72 70 189/86 H 217/96 H 04/29/17 10:00 97.9 F 73 20 04/29/17 04:00 97.5 F L 71 20 BP BP BP Pulse Ox Pulse Ox Pulse Ox 04/29/17 12:58 124/57 L 98 04/29/17 10:10 183/86 H 98 99 04/29/17 10:00 176/84 H 98 04/29/17 04:00 150/73 H 93 L Weight Weight 116.392 kg I&O: 04/28/17 04/29/17 04/30/17 06:59 06:59 06:59 Intake Total 1130 720 Output Total 2250 2550 Balance -1120 -1830 Result Diagrams: 04/27/17 03:06 04/29/17 05:22 <Veronica Dozier - Last Filed: 04/29/17 15:35> Phys Exam - Physical Examination Constitutional: NAD HEENT: PERRLA, moist MMs Respiratory: no wheezing, no rales Cardiovascular: RRR, no significant murmur Gastrointestinal: soft, non-tender, no distention, positive bowel sounds Musculoskeletal: no edema, pulses present Psychiatric: normal affect, A&O x 3 Skin: no rash <Tennille Clemons - Last Filed: 04/29/17 10:26> Dx/Plan (1) Diastolic CHF, acute Code(s): I50.31 - ACUTE DIASTOLIC (CONGESTIVE) HEART FAILURE Status: Acute (2) Depression Code(s): F32.9 - MAJOR DEPRESSIVE DISORDER, SINGLE EPISODE, UNSPECIFIED Status : Chronic (3) History of CVA (cerebrovascular accident) Code(s): Z86.73 - PRSNL HX OF TIA (TIA), AND CEREB INFRC W/O RESID DEFICITS Status: Chronic (4) Hyperlipidemia Code(s): E78.5 - HYPERLIPIDEMIA, UNSPECIFIED Status: Chronic (5) Hypertension Code(s): I10 - ESSENTIAL (PRIMARY) HYPERTENSION Status: Chronic (6) Obstructive sleep apnea of adult Code(s): G47.33 - OBSTRUCTIVE SLEEP APNEA (ADULT) (PEDIATRIC) Status: Chronic (7) Acute respiratory failure with hypoxia Code(s): J96.01 - ACUTE RESPIRATORY FAILURE WITH HYPOXIA Status: Resolved - Plan Plan: 71 yo female with new onset CHF, positive stress test yesterday showing anterior ischemia, with plan for cath Hx of VTach on 04/25 - Coreg to 25mg BID -stress test positive for anterior ischemia, -cath on sunday, will hold coumadin tonight and make NPO at midnight Acute Hypoxic Respiratory Failure 2/2 New Onset diastolic CHF - Originally requiring 3L of O2, on RA at rest but failed walking trial - Failed walking trial with desats into the 70's, CM to obtain home o2 - Likely due to chronic KARL, continue to wear CPAP - Coreg 25mg BID - Zocor - Lasix 40mg PO BID New onset CHF, diastolic-see above stress test positive for anterior ischemia will follow-up with cardiology recommendations Hypertensive Urgency,resolved - Coreg 25mg BID dosing and Valsartan to 320mg daily - Lasix to 40mg PO BID - Will continue to monitor VS with these changes HTN - pressure elevated but bb was held the past two days in the morning for stress test. Will continue to monitor. Pt is on highest dose of valsartan. Will consider adding HCTZ to regimen if pressures are persistently elevated. HLD - Continue home Zocor - FLP wnl KARL on CPAP - continue CPAP at night Depression - Continue Amytriptyline Hx of CVA - will continue Coumadin for anticoagulation, hold tonight for cath tomorrow - INR 1.8, patient missed a dose of Coumadin prior to arriving at the hospital - Pharmacy to dose coumadin due to subtherapeutic INR <Tennille Clemons - Last Filed: 04/29/17 10:26> Attending Addendum - Attending Addendum I personally evaluated the patient and discussed the management with Dr. Clemons. I agree with the History, Examination, Assessment and Plan documented above with any addition or exceptions noted below. The patient is doing well. She had a positive stress test for ischemia. She is scheduled for cath tomorrow. <Veronica Dozier - Last Filed: 04/29/17 15:35>
--- NOTE | 2017-04-29 15:35 | PDOC.CTH ---
Cardiology Progress Note - Subjective No new issues. - Objective Vital Signs Temp Pulse Pulse Pulse Resp BP BP 04/29/17 12:58 98.6 F 70 18 04/29/17 10:10 72 70 189/86 H 217/96 H 04/29/17 10:00 97.9 F 73 20 04/29/17 04:00 97.5 F L 71 20 BP BP BP Pulse Ox Pulse Ox Pulse Ox 04/29/17 12:58 124/57 L 98 04/29/17 10:10 183/86 H 98 99 04/29/17 10:00 176/84 H 98 04/29/17 04:00 150/73 H 93 L Weight 256 lb 9.6 oz 04/28/17 04/29/17 04/30/17 06:59 06:59 06:59 Intake Total 1130 720 Output Total 2250 2550 Balance -1120 -1830 - Physical Examination General/Neuro: alert & oriented x3, NAD Neck: no JVD present Lungs: unlabored respirations Heart: RRR Abdomen: NT/ND Extremities: + edema B (no edema) - Telemetry Telemetry Rhythm: NSR - Labs Result Diagrams: 04/27/17 03:06 04/29/17 05:22 Troponin/CKMB Troponin I 0.019 ng/mL (< 0.028) 04/25/17 03:25 - Assessment/Plan 1. Non sustained VT 2. Equivocal MPI with distal anterior to apical ischemia. PLAN - Will plan on [facility] tomorrow. - We spoke about risks and benefits, risks including but not limited to stroke, [place], , bleeding and need for blood transfusion. limb loss, organ loss, she agrees to proceed.
[2017-04-29] MEDS ORDERED: Communication Order-Pharmacy FS SCH (15:45)
[2017-04-29] MEDS: Simvastatin 5 MG TAB PO SCH (20:00)
[2017-04-29] MEDS: Amitriptyline HCl 25 MG TAB PO SCH (20:00)
[2017-04-30] MEDS: Sodium Chloride 0.9% 1,000 ML IV SCH ×4 (01:11→16:33)
[2017-04-30] MEDS ORDERED: Iopamidol 370 76% 100 ML VIAL ONE (04:50)
[2017-04-30 05:21] LABS: Prothrombin Time 18.7 SEC (12.0-14.7)
[2017-04-30] MEDS: Carvedilol 25 MG TAB PO SCH ×2 (06:03→16:33)
[2017-04-30] MEDS ORDERED: Verapamil 5 MG/2 ML VIAL ONE (06:45)
[2017-04-30] MEDS ORDERED: Heparin 10,000 UNITS/1 ML VIAL ONE (06:45)
[2017-04-30] MEDS ORDERED: Nitroglycerin 100MG/250ML BOT 250 ML ONE (06:45)
[2017-04-30] MEDS ORDERED: Fentanyl 100 MCG/2 ML VIAL ONE (07:38)
[2017-04-30] MEDS ORDERED: Midazolam HCl 2 mg/2 ml Vial ONE (07:38)
[2017-04-30] MEDS ORDERED: Acetaminophen/Codeine 30-300mg Tablet PO PRN ×2 (07:59)
[2017-04-30] MEDS ORDERED: traMADol HCl 50 MG TAB PO PRN (07:59)
[2017-04-30] MEDS ORDERED: Nitroglycerin 0.4 MG TAB (25 Tab Bottle) SL PRN (07:59)
[2017-04-30] MEDS ORDERED: Sodium Chloride 0.9% 200 ML IV SCH (08:00)
[2017-04-30] MEDS: Potassium Chloride 20 MEQ TAB PO SCH ×2 (09:06→16:33)
[2017-04-30] MEDS: Docusate 100 MG CAP PO SCH (09:07)
[2017-04-30] MEDS: Valsartan 80 MG TAB PO SCH (09:07)
[2017-04-30] MEDS: Furosemide 40 MG TAB PO SCH ×2 (09:07→14:54)
[2017-04-30] MEDS: PARoxetine 20 MG TAB PO SCH (09:07)
[2017-04-30 16:32] VITALS: BP 175/82; TEMP 98.7
[2017-04-30] MEDS ORDERED: Warfarin Sodium 3 MG TAB PO SCH (17:00)
--- NOTE | 2017-04-30 18:13 | PDOC.FM ---
- Subjective Subjective: No acute events overnight. Pt was made NPO for cath today. No complaints this morning. Not short of breath. No chest pain. Pt passed walking trial today. - Objective MAR Reviewed: Yes Vital Signs & Weight: Vital Signs (12 hours) Temp Pulse Pulse Pulse Resp BP BP 04/30/17 16:29 98.7 F 75 18 04/30/17 13:37 93 90 170/81 H 151/73 H 04/30/17 11:20 98.2 F 63 18 04/30/17 08:20 98.1 F 63 18 04/30/17 06:50 96.5 F L 65 20 BP BP Pulse Ox Pulse Ox Pulse Ox 04/30/17 16:29 175/82 H 96 04/30/17 13:37 95 96 04/30/17 11:20 134/69 100 04/30/17 08:20 122/57 L 98 04/30/17 06:50 Weight Weight 115.076 kg I&O: 04/29/17 04/30/17 05/01/17 06:59 06:59 06:59 Intake Total 720 2020 Output Total 2550 2600 Balance -1830 -580 Result Diagrams: 04/27/17 03:06 04/29/17 05:22 Phys Exam - Physical Examination Constitutional: NAD HEENT: PERRLA, moist MMs Respiratory: no wheezing, no rales, clear to auscultation bilateral Cardiovascular: RRR, no significant murmur Gastrointestinal: soft, non-tender, no distention Musculoskeletal: no edema, pulses present Neurological: non-focal, normal sensation Psychiatric: normal affect, A&O x 3 Dx/Plan (1) Diastolic CHF, acute Code(s): I50.31 - ACUTE DIASTOLIC (CONGESTIVE) HEART FAILURE Status: Acute (2) Depression Code(s): F32.9 - MAJOR DEPRESSIVE DISORDER, SINGLE EPISODE, UNSPECIFIED Status : Chronic (3) History of CVA (cerebrovascular accident) Code(s): Z86.73 - PRSNL HX OF TIA (TIA), AND CEREB INFRC W/O RESID DEFICITS Status: Chronic (4) Hyperlipidemia Code(s): E78.5 - HYPERLIPIDEMIA, UNSPECIFIED Status: Chronic (5) Hypertension Code(s): I10 - ESSENTIAL (PRIMARY) HYPERTENSION Status: Chronic (6) Obstructive sleep apnea of adult Code(s): G47.33 - OBSTRUCTIVE SLEEP APNEA (ADULT) (PEDIATRIC) Status: Chronic (7) Acute respiratory failure with hypoxia Code(s): J96.01 - ACUTE RESPIRATORY FAILURE WITH HYPOXIA Status: Resolved (8) Hypertensive urgency Code(s): I16.0 - HYPERTENSIVE URGENCY Status: Resolved (9) V-tach Code(s): I47.2 - VENTRICULAR TACHYCARDIA Status: Resolved - Plan Plan: 71 yo female with new onset CHF, positive stress test yesterday showing anterior ischemia, now s/p cath today. Hx of VTach on 04/25 - Coreg to 25mg BID -stress test positive for anterior ischemia, -cath completed today and cleared for discharge per cardiology Acute Hypoxic Respiratory Failure 2/2 New Onset diastolic CHF, resolved - Originally requiring 3L of O2, on RA at rest but failed walking trial initially; repeat walking trial today was wnl - Coreg 25mg BID - Zocor 20mg dialy - Lasix 40mg PO BID New onset CHF, diastolic-see above stress test positive for anterior ischemia s/p cath today Hypertensive Urgency,resolved - Coreg 25mg BID dosing and Valsartan to 320mg daily - Lasix to 40mg PO BID - Will continue to monitor VS with these changes HTN, controlled - Coreg 25mg BID dosing and Valsartan to 320mg daily HLD - Continue home Zocor - FLP wnl KARL on CPAP - continue CPAP at night Depression - Continue Amytriptyline Hx of CVA - will continue Coumadin for anticoagulation Dispo: discharge today with close follow-up with PCP and cardiology follow-up. Pt needs follow-up on INR labs since she is on Coumadin.
== END 2017-04-30 18:35 | disposition home or self-care (01) | DRG 286 ==
LOC: ERS 23:19 → 2NO 04-25
PROVIDERS: ADMIT Family Medicine; ATTEND Family Medicine
PROC: 5A09557 Assistance with Respiratory Ventilation, Greater than 96 Consecutive Hours, Continuous Positive Airway Pressure (ICD-10-PCS; 2017-04-25)
PROC: 4A02XM4 Measurement of Cardiac Total Activity, External Approach (ICD-10-PCS; 2017-04-28)
PROC: 4A023N7 Measurement of Cardiac Sampling and Pressure, Left Heart, Percutaneous Approach (ICD-10-PCS; principal; 2017-04-30)
PROC: B2111ZZ Fluoroscopy of Multiple Coronary Arteries using Low Osmolar Contrast (ICD-10-PCS; 2017-04-30)
DX: I11.0 Hypertensive heart disease with heart failure (principal); J96.01 Acute respiratory failure with hypoxia; I47.1 Supraventricular tachycardia; Z68.41 Body mass index [BMI] 40.0-44.9, adult; I50.33 Acute on chronic diastolic (congestive) heart failure; E78.5 Hyperlipidemia, unspecified; E66.9 Obesity, unspecified; E05.80 Other thyrotoxicosis without thyrotoxic crisis or storm; G47.33 Obstructive sleep apnea (adult) (pediatric); F32.9 Major depressive disorder, single episode, unspecified; I99.8 Other disorder of circulatory system; I16.0 Hypertensive urgency; Z86.73 Personal history of transient ischemic attack (TIA), and cerebral infarction without residual deficits; Z96.652 Presence of left artificial knee joint; Z88.5 Allergy status to narcotic agent; Z88.8 Allergy status to other drugs, medicaments and biological substances; Z83.3 Family history of diabetes mellitus
CPT/HCPCS: 36415; 71020; 78452; 80048; 80061; 83735; 84100; 84443; 84484; 85014; 85018; 85025; 85049; 85610; 85730; 87086; 93005; 93010; 93017; 93306; 93458; 93798; 94660; 94760; 99152; A4216; A9500; C1769; G8978-GP-CH; G8979-GP-CH; G8980-GP-CH; G8987-GO-CJ; G8988-GO-CH; J0360; J1644; J1940; J2250; J2785; J3010; J3480; J7050

== ENCOUNTER 2017-07-25 14:25 | Outpatient (CLI) | payer MEDICARE, MEDICAID | END 2017-07-25 14:26 | disposition home or self-care (01) | LOC: BICMAMMO 14:25 | PROVIDERS: ATTEND Family Medicine | DX: Z12.31 Encounter for screening mammogram for malignant neoplasm of breast (principal); R92.1 Mammographic calcification found on diagnostic imaging of breast; Z80.3 Family history of malignant neoplasm of breast | CPT/HCPCS: 77063; 77067 ==

== ENCOUNTER 2020-02-07 00:20 | Inpatient (IN) | payer MEDICARE, OTHER ==
--- NOTE | 2020-02-07 00:50 | PDOC.FPRHP ---
- History of Present Illness Chief Complaint: SOB History of Present Illness: Pt is a 74yo female with PMH of HFpEF who presents with increasing SOB. She states that over the past few weeks she has had worsening dyspnea on exertion which she attributed to her being deconditioned from being confined to her house because of COVID worries. Her daughter went to check on her today and noticed cyanosis of her lips, so she called their PCP and they were advised to call EMS. Pt states that she weighs herself daily and had gained 20 pounds but blamed it on "letting herself go" during quarantine. She has been compliant with her meds, is not on home oxygen. EMS arrived and found her to have cyanosis of lips on exam and an O2 sat in the 70s. She was placed on 4L NC and her sats improved. Denies CP, N/V, fever, cough, congestion, muscle aches, and diarrhea ED Course: nitro paste, 60mg IV lasix - Allergies/Adverse Reactions Allergies Allergy/AdvReac Type Severity Reaction Status Date / Time phenobarbital Allergy Intermediate Verified 02/07/20 03:22 tramadol HCl [From Ultram] Allergy Intermediate Verified 02/07/20 03:22 ibuprofen Allergy Mild Verified 02/07/20 03:22 promethazine HCl Allergy Mild Verified 02/07/20 03:22 [From Phenergan] - Home Medications Medication Instructions Recorded Confirmed Type PARoxetine HCl [Paxil] 20 mg PO DAILY 06/08/13 02/07/20 History Amitriptyline HCl [Elavil] 25 mg PO HS 07/16/13 02/07/20 History Warfarin Sodium [Coumadin] 3 mg PO TuThSa tab 04/27/17 02/07/20 Rx Warfarin Sodium [Coumadin] 6 mg PO SuMoWeFr tab 04/27/17 02/07/20 Rx Simvastatin [Zocor] 10 mg PO HS #30 tab 04/30/17 02/07/20 Rx Carvedilol [Coreg] 6.25 mg PO BID-WM 02/07/20 02/07/20 History Levothyroxine Sodium [Synthroid] 25 mcg PO DAILY 02/07/20 02/07/20 History Losartan Potassium [Cozaar] 100 mg PO DAILY 02/07/20 02/07/20 History Spironolactone 25 mg PO DAILY 02/07/20 02/07/20 History - History PMHx: HFpEF, HTN, KARL, OA, CVA, hypothyroidism PSHx: cysts in breasts, partial hysterectomy, trach after CVA FHx: mom and brother- heart defects; sister- colon cancer Social: no T/A/D - Review of Systems General: reports: weight/appetite/sleep changes. denies: fever/chills ENT: denies: nasal congestion, rhinorrhea Respiratory: reports: shortness of breath. denies: cough, congestion Cardiovascular: reports: edema. denies: chest pain, palpitation, paroxysmal nocturnal dyspnea, orthopnea Gastrointestinal: denies: nausea, vomiting, diarrhea, abdominal pain Genitourinary: denies: dysuria Skin: denies: rashes Musculoskeletal: denies: pain, tenderness Neurological: denies: numbness, syncope - Vital signs BP:126/70, Pulse: 69, Resp: 18, O2 sat: 97 on (4L Oxygen) - Physical Exam Constitutional: NAD, awake, alert and oriented, well developed HEENT: normocephalic and atraumatic, conjunctiva clear, no scleral icterus, grossly normal vision, grossly normal hearing -HEENT: bruising to right side of face, hx of fall 3 weeks ago Neck: supple, trachea midline Heart: RRR, normal S1/S2 -Heart: 2/6 systolic murmur heard at upper sternal border, pretibial edema bilat Lungs: no respiratory distress -Lungs: rales heard over right lung field Abdomen: soft, non-tender Musculoskeletal: normal structure, normal tone, ROM grossly normal Neurological: no focal deficit Skin: good turgor, capillary refill <2 seconds -Skin: no cyanosis Psychiatric: normal mood and affect, good judgment and insight, intact recent and remote memory FMR H&P: Results - Labs Result Diagrams: 02/07/20 04:02 02/07/20 04:02 FMR H&P: A/P - Plan #Acute hypoxic resp failure 2/2 CHF exacerbation - BNP 594. Trop 0.02 - CXR: cardiomegaly and interstitial prominence, mild congestive change - Strict I/Os, fluid restrict - pending: echo. Echo is 2016 showed EF 55-60% with diastolic dysfunction - IV lasix given in ED, patient feels breathing is improved, will start home torsemide - on 4L NC in ED, will wean as tolerated #hx of CVA -on coumadin, INR 6.2, PT 54.5, PTT 82.6 -will hold all anticoagulation for now and recheck coag panel #HTN - continue home meds #Hypothyroidism -continue home meds #ABHAY - continue home meds Code: FULL Diet: HH/CC, fluid restrict Ppx: holding due to INR 6.2 PCP: MELODY Ames Dispo: admit tele, inpt, stable, LOS >48hours FMR H&P: Upper Level - Plan Date/Time: 02/07/20 0050 IUsha MD, have evaluated this patient and agree with findings/plan as outlined by sourcing internship resident. Pertinent changes/additions are listed here. This is a 74yo F with hx of CHF on torsemide who presented to [facility] after increasing SOB and was transferred for admission to our ER. She called EMS from home and when they arrived she was cyanotic in her lips and fingers and satting in the 60s. She was placed on 4L NC int he filed with increase in her O2 sats to 95%. She was given IV lasix and nitropaste which improved her symptoms. She reports feeling much better at this time. She denies any chest pain, NVD, fever , body aches, chills, cough, congesetion sore throat. She states her symptoms feel like her previous CHF exacerbation. Takes torsemide for her CHF, has not missed a dose. Has been watching her diet. On coumadine due to a hx of CVA. See sourcing internship note for full details. In the [facility], she was given 60mg IV lasix, and 1in nitro. On exam here, she is resting comfortably. Satting well on 4 L NC. Trace edema b/l lower extremities. No crackles, but rales on RLL. Will admit to tele, inpatient. Acute hypoxic resp failure 2/2 CHF exacerbation. BNP 594. CXR showing cardiomegaly and interstitial prominence, mild congestive change. Will monitor fluid status. Give home torsemide. Fluid restrict. Ween off O2 as tolerated. Monitor on tele. Echo pending. Supratherapeutic INR - on coumadin for previous CVA - will hold coumadin and recheck INR. Continue current home medications for chronic conditions. Dispo: admit tele, inpt Code: FULL Diet: HH/CC, fluid restrict Ppx: holding due to INR PCP: MELODY Ames Case to be discussed with Dr. Nuñez Addendum - Attending - Attending Attestation Date/Time: 02/07/20 [id number] I personally evaluated the patient and discussed the management with Dr. Esparza/ Main. I agree with the History, Examination, Assessment and Plan documented above with any addition or exceptions noted below. Patient reports feeling improved this morning. She has been having increased TEE and had new O2 requirement yesterday. She does not seem to have many symptoms of worsenig CHF, but she did improve drastically with IV lasix therapy. Will monitor fluid balance. Recheck TTE. Holding anticoagulation due to her prolonged INR. No evidence of bleeding at this time. Resume home meds.
[2020-02-07 01:39] LABS: Troponin I 0.021 ng/mL (< 0.028)
[2020-02-07] MEDS ORDERED: Acetaminophen 325 MG TAB PO PRN (01:47)
[2020-02-07] MEDS ORDERED: Acetaminophen 650 MG Suppository PR PRN (01:47)
[2020-02-07] MEDS ORDERED: Ondansetron PF 4 MG/2 ML Vial IVP PRN (01:47)
[2020-02-07] MEDS ORDERED: Ondansetron ODT 4 MG TAB PO PRN (01:47)
[2020-02-07 04:13] VITALS: BMI 45.1
[2020-02-07 04:47] LABS: Prothrombin Time 50.6 sec (12.0-14.7)
[2020-02-07 04:48] LABS: PTT 88.9 sec (22.9-36.1)
[2020-02-07 04:49] LABS: INR-International Normal Ratio 5.7
[2020-02-07 05:10] LABS: Troponin I 0.026 ng/mL (< 0.028)
[2020-02-07 05:15] LABS: Anion Gap 15 mmol/L (10-20); BUN (Urea Nitrogen) 18 mg/dL (9.8-20.1); Calc. Creatinine Clearance 111 mL/min (70-130); Calcium 9.7 mg/dL (7.8-10.44); Carbon Dioxide 31 mmol/L (23-31); Chloride 98 mmol/L (98-107); Estimated GFR-MDRD 69; Glucose 89 mg/dL (83-110); Potassium 3.8 mmol/L (3.5-5.1); Sodium 140 mmol/L (136-145)
[2020-02-07 05:23] LABS: Band 5 % (5-11); Elliptocytes SLIGHT = 2-5 cells (100X) (0-1/hpf); Hypochromia MODERATE=16-30 cells (100X) (0-5/hpf); Lymphocytes 14 % (21-51); MDiff Complete? YES; Mean Corpuscular HGB CONC 29.5 g/dL (32.0-36.0); Mean Corpuscular Hemoglobin 23.5 pg (27.0-31.0); Mean Corpuscular Volume 79.7 fL (78.0-98.0); Mean Platelet Volume 6.9 fL (7.4-10.4); Monocytes 7 % (0-10); Neutrophil 74 % (42-75); Nucleated RBC 9 % (0); Platelet Count 135 thou/uL (130-400); Platelet Morphology Comment Appears Adequate; Polychromasia SLIGHT = 2-3 cells (100X) (0-2/hpf); Red Blood Cell (RBC) Count 5.54 mill/uL (4.20-5.40); Reflex for Review?? YES; White Blood Cell (WBC) Count 5.4 thou/uL (4.8-10.8)
[2020-02-07] MEDS: Levothyroxine Sodium 25 MCG TAB PO SCH (05:26)
[2020-02-07] MEDS: Losartan 25 MG TAB PO SCH (08:58)
[2020-02-07] MEDS: PARoxetine 20 MG TAB PO SCH (08:59)
[2020-02-07] MEDS: Spironolactone 25 MG TAB PO SCH (08:59)
[2020-02-07] MEDS: Carvedilol 6.25 MG TAB PO SCH ×2 (08:59→17:52)
[2020-02-07] MEDS ORDERED: Torsemide 20 MG TAB PO SCH (09:00)
[2020-02-07 12:38] LABS: SARS-CoV-2 MS2 Positive; SARS-CoV-2 N Gene Negative; SARS-CoV-2 S Gene Negative; SARS-CoV-2 by NAA Not Detected (NotDetected); SARS-CoV-2 orf1ab Negative
[2020-02-07] MEDS: Simvastatin 5 MG TAB PO SCH (20:31)
[2020-02-07] MEDS: Amitriptyline HCl 25 MG TAB PO SCH (20:31)
[2020-02-08 04:23] LABS: Prothrombin Time 39.9 sec (12.0-14.7)
[2020-02-08 04:24] LABS: PTT 75.7 sec (22.9-36.1)
[2020-02-08 04:29] LABS: INR-International Normal Ratio 4.2
[2020-02-08] MEDS: Levothyroxine Sodium 25 MCG TAB PO SCH (05:19)
--- NOTE | 2020-02-08 05:34 | PDOC.FM ---
- Subjective Subjective: Layla is doing well today with no complaints. She says she has been urinating a lot. She denies dyspnea/SOB/CP/edema/discomfort. - Objective Vital Signs & Weight: Vital Signs (12 hours) Temp Pulse Resp BP BP Pulse Ox 02/08/20 03:04 97.6 F 76 20 127/60 92 L 02/07/20 19:52 96 02/07/20 19:14 98.6 F 70 18 140/65 96 Weight Weight 119.34 kg I&O: 02/06/20 02/07/20 02/08/20 06:59 06:59 06:59 Intake Total 20 360 Output Total 300 Balance 20 60 Result Diagrams: 02/07/20 04:02 02/08/20 07:19 Phys Exam - Physical Examination Constitutional: NAD (Took CPAP off to talk to me. States she does well w/o it) Neck: supple Respiratory: no wheezing Significant crackling b/l, consistent with effusions seen on outside CTA Cardiovascular: RRR, no significant murmur Gastrointestinal: soft, non-tender, no distention, positive bowel sounds Musculoskeletal: no edema (in UE or LE b/l), pulses present (2+ radial and dorsalis pedis pulses b/l) Neurological: non-focal, moves all 4 limbs Psychiatric: normal affect, A&O x 3 Skin: no rash Dx/Plan - Plan Plan: Acute hypoxic resp failure 2/2 CHF exacerbation - BNP 594. Trop 0.02 - CXR: cardiomegaly and interstitial prominence, mild congestive change - Outside CTA: R sided pleural effusion and CHF - Strict I/Os, fluid restrict - Echo performed 02/06. Results pending. Echo in 2017 showed EF 55-60% with diastolic dysfunction - IV lasix given in ED, patient feels breathing is improved, will start home torsemide - O2 requirement has been decreasing, continue to wean - No UE/LE edema, positive crackles in mid/lower lungs b/l - Did not receive Torsemide yesterday. Begin today with one-time 40mg dose of IV Lasix Hx of CVA - On coumadin - On admission, INR 6.2, PT 54.5, PTT 82.6 On 02/07: INR 4.2, PT 40, PTT 76 - Will continue to hold all anticoagulation for now and recheck coag panel in morning HTN - Stable - Continue home meds Hypothyroidism - Continue home meds ABHAY - Continue home meds Code: FULL Diet: HH/CC, fluid restrict Ppx: holding due to elevated INR PCP: MELODY Ames Dispo: admit tele, inpt, stable, LOS >48hours Addendum - Attending - Attending Attestation Date/Time: 02/08/20 1518 I personally evaluated the patient and discussed the management with Dr. Julia Hernandes. I agree with the History, Examination, Assessment and Plan documented above with any addition or exceptions noted below. Patient reports significant improvement today. Feels much better. Will diurese x1 day and see if we can get her off O2. Echo report pending. INR still supratherapeutic but downtrending nicely and no evidence of bleeding so no indication for reversal at this time.
[2020-02-08 07:50] LABS: Anion Gap 10 mmol/L (10-20); BUN (Urea Nitrogen) 18 mg/dL (9.8-20.1); Calc. Creatinine Clearance 113 mL/min (70-130); Calcium 9.3 mg/dL (7.8-10.44); Carbon Dioxide 36 mmol/L (23-31); Chloride 97 mmol/L (98-107); Estimated GFR-MDRD 71; Glucose 86 mg/dL (83-110); Potassium 4.1 mmol/L (3.5-5.1); Sodium 139 mmol/L (136-145)
[2020-02-08] MEDS ORDERED: Furosemide 40 MG/4 ML VIAL SLOW IVP SCH (09:15)
[2020-02-08] MEDS: Carvedilol 6.25 MG TAB PO SCH ×2 (09:31→17:04)
[2020-02-08] MEDS: Spironolactone 25 MG TAB PO SCH (09:31)
[2020-02-08] MEDS: Torsemide 20 MG TAB PO SCH (09:31)
[2020-02-08] MEDS: PARoxetine 20 MG TAB PO SCH (09:31)
[2020-02-08] MEDS: Losartan 25 MG TAB PO SCH (09:31)
[2020-02-08] MEDS: Amitriptyline HCl 25 MG TAB PO SCH (20:36)
[2020-02-08] MEDS: Simvastatin 5 MG TAB PO SCH (20:36)
[2020-02-09 04:21] LABS: INR-International Normal Ratio 2.2; Prothrombin Time 24.5 sec (12.0-14.7)
[2020-02-09 04:22] LABS: PTT 54.6 sec (22.9-36.1)
[2020-02-09] MEDS: Levothyroxine Sodium 25 MCG TAB PO SCH (05:27)
--- NOTE | 2020-02-09 07:23 | PDOC.FM ---
- Subjective Subjective: Layla is doing well this morning and has no complaints. She was sleeping at a mild incline and states she is never able to lay this flat at home. She says she has been put on O2 the past few days but she is not sure why. She denies dyspnea, SOB, CP, edema in UE/LE, abdominal distension. She is asking if she can go home today. - Objective Vital Signs & Weight: Vital Signs (12 hours) Temp Pulse Resp BP Pulse Ox 02/09/20 04:00 96.8 F L 63 18 135/64 92 L 02/08/20 20:31 98.9 F 70 20 150/70 H 94 L Weight Weight 115.394 kg I&O: 02/08/20 02/09/20 02/10/20 06:59 06:59 06:59 Intake Total 600 600 Output Total 930 1650 Balance -330 -1050 Result Diagrams: 02/07/20 04:02 02/08/20 07:19 Phys Exam - Physical Examination Constitutional: NAD (Speaking comfortably without CPAP) Neck: supple Respiratory: no wheezing Crackles still audible in mid/lower lobes b/l. Improved from yesterday Cardiovascular: RRR, no significant murmur Gastrointestinal: soft, non-tender, no distention, positive bowel sounds Musculoskeletal: no edema (in b/l UE and LE), pulses present Neurological: non-focal, moves all 4 limbs (Able to sit up ) Psychiatric: normal affect, A&O x 3 Skin: no rash Dx/Plan - Plan Plan: Pt is a 74F who presented for SOB and cyanosis Acute hypoxic resp failure 2/2 CHF exacerbation - BNP 594. Trop 0.02 - CXR: cardiomegaly and interstitial prominence, mild congestive change - Outside CTA: R sided pleural effusion and CHF - Strict I/Os, fluid restrict 02/08 -520mL balance - Echo performed 02/06. Results pending. Echo in 2017 showed EF 55-60% with diastolic dysfunction - IV lasix given in ED. On home torsemide - O2 requirement has been decreasing, continue to wean Baseline is RA with CPAP at night for KARL Pt denies any resp sx when off O2 - No UE/LE edema - Crackles present in mid/lower lungs b/l. Improving Hx of CVA - On coumadin - On admission, INR 6.2, PT 54.5, PTT 82.6 On 02/07: INR 4.2, PT 40, PTT 76 02/08: INR 2.2, PT 24.5, PTT 54.6 - Home Warfarin schedule: 6mg Sun/Mon/Sun/Fri and 3mg //Sat Restart today at 3mg daily HTN - Stable. SBP <150 for past 24h - Continue home meds Hypothyroidism - Continue home meds ABHAY - Continue home meds Code: FULL Diet: HH/CC, fluid restrict Ppx: holding due to elevated INR PCP: MELODY Ames Dispo: admit tele, inpt, stable, LOS <48hours Addendum - Attending - Attending Attestation Date/Time: 02/09/20 1403 I personally evaluated the patient and discussed the management with the team. I agree with the History, Examination, Assessment and Plan documented above with any addition or exceptions noted below. Appears euvolemic. Await TTE results and continue diuresis, although she has some lab evidence of contraction alkalosis.
[2020-02-09] MEDS: PARoxetine 20 MG TAB PO SCH (08:13)
[2020-02-09] MEDS: Carvedilol 6.25 MG TAB PO SCH ×2 (08:13→17:05)
[2020-02-09] MEDS: Losartan 25 MG TAB PO SCH (08:13)
[2020-02-09] MEDS: Spironolactone 25 MG TAB PO SCH (08:14)
[2020-02-09] MEDS: Torsemide 20 MG TAB PO SCH (08:14)
[2020-02-09] MEDS ORDERED: Warfarin Sodium 3 MG TAB PO SCH (10:21)
[2020-02-09] MEDS: Warfarin Sodium 3 MG TAB PO SCH (17:07)
[2020-02-09] MEDS: Simvastatin 5 MG TAB PO SCH (20:47)
[2020-02-09] MEDS: Amitriptyline HCl 25 MG TAB PO SCH (20:47)
[2020-02-10 04:13] LABS: INR-International Normal Ratio 1.5; Prothrombin Time 18.3 sec (12.0-14.7)
[2020-02-10 04:14] LABS: PTT 37.6 sec (22.9-36.1)
[2020-02-10] MEDS: Levothyroxine Sodium 25 MCG TAB PO SCH (04:59)
--- NOTE | 2020-02-10 05:19 | PDOC.FM ---
- Subjective Subjective: Layla is doing well this morning and continues to endorse decreasing respiratory symptoms. She is very pleased with how flat she has been able to lay here in the hospital. Endorses frequent urination and is happy with her pure wick. She feels ready to go home. Denies SOB/dyspnea/CP/SALMERON/edema of UE, LE , abdominal. - Objective Vital Signs & Weight: Vital Signs (12 hours) Temp Pulse Resp BP Pulse Ox 02/09/20 19:35 98.4 F 80 14 121/65 93 L Weight Weight 115.014 kg I&O: 02/08/20 02/09/20 02/10/20 06:59 06:59 06:59 Intake Total 600 600 480 Output Total 930 1650 1700 Balance -330 -1050 -1220 Result Diagrams: 02/07/20 04:02 02/08/20 07:19 Phys Exam - Physical Examination Constitutional: NAD (Sleeping comfortably and easy to arouse) Neck: supple Minimal crackles still heard on mid/lower lobes b/l Cardiovascular: RRR, no significant murmur Gastrointestinal: soft, non-tender, no distention Musculoskeletal: no edema (in UE or LE b/l), pulses present (2+ radial and dorsalis pedis pulses b/l) Neurological: non-focal, moves all 4 limbs Psychiatric: normal affect, A&O x 3 Skin: no rash Dx/Plan - Plan Plan: Pt is a 74F who presented for SOB and cyanosis Acute hypoxic resp failure 2/2 CHF exacerbation - BNP 594. Trop 0.02 - CXR: cardiomegaly and interstitial prominence, mild congestive change - Outside CTA: R sided pleural effusion and CHF - Strict I/Os, fluid restrict 02/08 -1050mL balance 02/09 -1480mL balance - Echo performed 02/06. Results pending. Echo in 2017 showed EF 55-60% with diastolic dysfunction Discharge pending results - IV lasix given in ED and on floor but since discontinued - On home torsemide 40mg EVA and Spironolactone 25mg EVA - O2 requirement has been decreasing, continue to wean Baseline is RA with CPAP at night for KARL Pt denies any resp sx when off O2 SpO2 recorded in low 90s on RA - Clx: no UE/LE/abdominal edema, crackles present in mid/lower lungs b/l significantly improved Hx of CVA - On coumadin - On admission, INR 6.2, PT 54.5, PTT 82.6 On 02/07: INR 4.2, PT 40, PTT 76 02/08: INR 2.2, PT 24.5, PTT 54.6 - Home Warfarin schedule: 6mg Sun/Mon/Sun/Fri and 3mg Tu//Sat - Restarted at 3mg on 02/08 02/09: INR1.5, PT 18.3, PTT 37.6 - Her PCP says she is usually difficult to maintain in therapeutic range. Suspect change in INR is d/t change in diet since her neighbor has been bringing her food frequently over the week(s) HTN - Stable. SBP in upper 120s now - Continue home meds: Coreg 6.25mg BID, Losartan 100mg EVA Hypothyroidism - Continue home meds: Levothyroxine 25mcg ABHAY - Continue home meds: Paxil 20mg EVA, Amitriptyline 25mg HS Code: FULL Diet: HH/CC, fluid restrict DVT Ppx: Warfarin 3mg PCP: MELODY Ames Dispo: admit tele, inpt, stable, LOS <24hours pending echo results Addendum - Attending - Attending Attestation Date/Time: 02/10/20 1440 I personally evaluated the patient and discussed the management with the team. I agree with the History, Examination, Assessment and Plan documented above with any addition or exceptions noted below. Euvolemic. Can be discharged if we can get her echo.
[2020-02-10] MEDS: Torsemide 20 MG TAB PO SCH (08:07)
[2020-02-10] MEDS: Spironolactone 25 MG TAB PO SCH (08:07)
[2020-02-10] MEDS: Losartan 25 MG TAB PO SCH (08:07)
[2020-02-10] MEDS: PARoxetine 20 MG TAB PO SCH (08:07)
[2020-02-10] MEDS: Carvedilol 6.25 MG TAB PO SCH ×2 (08:08→17:16)
[2020-02-10 15:20] VITALS: BP 143/73; TEMP 99.3
[2020-02-10] MEDS: Warfarin Sodium 3 MG TAB PO SCH (17:16)
--- NOTE | 2020-02-11 11:59 | DIS ---
DATE OF ADMISSION: 02/07/2020 DATE OF DISCHARGE: 02/10/2020 RESIDENT: Janice Esposito MD ADMITTING ATTENDING: Arely Ames MD DISCHARGE ATTENDING: Nadir Bronson MD CONSULTS: None. PROCEDURES: Echo (02/07/2020). PRIMARY DIAGNOSIS: Acute hypoxic respiratory failure 2/2 CHF exacerbation. SECONDARY DIAGNOSES: Supratherapeutic INR, hypertension, obstructive sleep apnea, CVA, hypothyroid, and ABHAY. DISCHARGE MEDICATIONS: 1. Amitriptyline 25 mg. 2. Coreg 25 mg. 3. Levothyroxine 25 mcg. 4. Losartan 100 mg. 5. Paroxetine 20 mg. 6. Simvastatin 5 mg. 7. Spironolactone 25 mg. 8. Torsemide 20 mg. 9. Warfarin 3 mg. DISCONTINUED MEDICATION: Warfarin 6 mg. HISTORY OF PRESENT ILLNESS/HOSPITAL COURSE: This patient is a 74-year-old female with a past medical history of HFpEF, who presented with increasing shortness of breath, worsening dyspnea on exertion, and cyanosis noticed by her daughter. She stated she had gained 20 pounds over the past few weeks. Her BNP was 594 and chest x-ray showed cardiomegaly with interstitial prominence and mild congestive changes. Her INR was 6.2, PT was 54.5, PTT was 82.6 so Warfarin was discontinued. Most recent echo was in 2016, which showed an EF of 55% to 60% with diastolic dysfunction. She was given IV Lasix in the ED and started on her home dose of torsemide. She had an oxygen requirement when she first came in despite a baseline of room air. A repeat echo was performed on 02/06 and showed EF of 60-65% I/III diastolic dysfunction. By 02/09, INR was 2.2, so her warfarin was restarted at 3 mg. Prior to discharge, she was stable on room oxygen again and her INR was down to 1.5. She was discharged with instructions to follow up with her PCP, Dr. Ames. DISPOSITION: Stable DISCHARGE INSTRUCTIONS: 1. Location: Home. 2. Diet: Heart healthy, fluid restricted. 3. Activity: As tolerated. 4. Followup: Outpatient appointment with Dr. Ames (PCP). Job ID: [id number] MTDD
== END 2020-02-10 18:18 | disposition home or self-care (01) | DRG 291 ==
LOC: ERS 00:20 → 2NO 00:54
PROVIDERS: ADMIT Family Medicine; ATTEND Family Medicine
DX: I11.0 Hypertensive heart disease with heart failure (principal); J96.01 Acute respiratory failure with hypoxia; E87.3 Alkalosis; Z20.828 Contact with and (suspected) exposure to other viral communicable diseases; I50.33 Acute on chronic diastolic (congestive) heart failure; G47.33 Obstructive sleep apnea (adult) (pediatric); E03.9 Hypothyroidism, unspecified; F41.1 Generalized anxiety disorder; E78.5 Hyperlipidemia, unspecified; F32.9 Major depressive disorder, single episode, unspecified; Z88.8 Allergy status to other drugs, medicaments and biological substances; Z88.6 Allergy status to analgesic agent; Z79.02 Long term (current) use of antithrombotics/antiplatelets; Z79.890 Hormone replacement therapy; Z79.899 Other long term (current) drug therapy; Z86.73 Personal history of transient ischemic attack (TIA), and cerebral infarction without residual deficits; Z90.710 Acquired absence of both cervix and uterus
CPT/HCPCS: 36415; 80048; 83735; 84484; 85025; 85060; 85610; 85730; 87635; 93306; 94760; J1940; U0003

== ENCOUNTER 2020-05-07 12:15 | Outpatient (CLI) | payer MEDICARE ==
--- NOTE | 2020-05-07 12:53 | MMO ---
Bilateral MAMMO Bilat Screen [facility]. CLINICAL HISTORY: Patient is 74 years old and is seen for screening. The patient has the following family history of breast cancer: maternal grandmother. The patient has no personal history of cancer. The patient has a history of bilateral Excisional Biopsy - benign - atleast 15 years ago. VIEWS: The views performed were: bilateral craniocaudal with tomosynthesis; bilateral mediolateral oblique with tomosynthesis; and left craniocaudal. FILMS COMPARED: The present examination has been compared to prior imaging studies performed at [facility] on 11/25/2013, 04/14/2015, 06/12/2016 and 07/25/2017. This study has been interpreted with the assistance of computer-aided detection. MAMMOGRAM FINDINGS: There are scattered fibroglandular densities. There are stable benign appearing calcifications seen in both breasts. There are also vascular calcifications. There are no suspicious masses, suspicious calcifications, or new areas of architectural distortion. IMPRESSION: THERE IS NO MAMMOGRAPHIC EVIDENCE OF MALIGNANCY. A ROUTINE FOLLOW-UP MAMMOGRAM IN 1 YEAR IS RECOMMENDED. THE RESULTS OF THIS EXAM WERE SENT TO THE PATIENT. ACR BI-RADS Category 2 - Benign finding MAMMOGRAPHY NOTE: 1. A negative mammogram report should not delay a biopsy if a dominant of clinically suspicious mass is present. 2. Approximately 10% to 15% of breast cancers are not detected by mammography. 3. Adenosis and dense breasts may obscure an underlying neoplasm. Reported by: LIZBET ARMSTRONG MD Electonically Signed: [id number]
== END 2020-05-07 12:16 | disposition home or self-care (01) ==
LOC: BICMAMMO 12:15
PROVIDERS: ATTEND Family Medicine
DX: Z12.31 Encounter for screening mammogram for malignant neoplasm of breast (principal); Z80.3 Family history of malignant neoplasm of breast; Z91.89 Other specified personal risk factors, not elsewhere classified
CPT/HCPCS: 77063; 77067

== ENCOUNTER 2021-02-06 02:04 | Inpatient (IN) | payer MEDICARE ==
[2021-02-06] MEDS ORDERED: Acetaminophen 325 MG TAB PO PRN (03:38)
[2021-02-06] MEDS ORDERED: Ondansetron PF 4 MG/2 ML Vial IVP PRN (03:38)
[2021-02-06] MEDS ORDERED: HYDROcodone/Acetaminophen 7.5/325 mg Tablet PO PRN (03:38)
[2021-02-06] MEDS ORDERED: Bisacodyl 10 MG SUPP PR PRN (03:38)
[2021-02-06] MEDS ORDERED: Morphine 2 MG/ML VIAL SLOW IVP PRN (03:41)
[2021-02-06] MEDS ORDERED: hydrALAZINE 20 MG/ML VIAL SLOW IVP PRN (03:41)
[2021-02-06] MEDS ORDERED: GUAIFENESIN SF SOLN 200 MG/10 ML UDCUP PO PRN (03:55)
[2021-02-06 04:46] LABS: INR-International Normal Ratio 2.1; PTT 29.2 sec (22.9-36.1); Prothrombin Time 23.5 sec (12.0-14.7)
[2021-02-06] MEDS: Vancomycin 1.5 GRAM/300 ML BAG 1.5 GM in Premix Bag 1 BAG IVPB SCH (04:50)
[2021-02-06 05:22] LABS: Troponin I 0.017 ng/mL (< 0.028)
[2021-02-06] MEDS ORDERED: Furosemide 100 MG/10 ML VIAL SLOW IVP SCH (06:45)
[2021-02-06] MEDS ORDERED: Furosemide 40 MG/4 ML VIAL ONE (06:58)
[2021-02-06] MEDS: Levothyroxine Sodium 25 MCG TAB PO SCH (07:00)
[2021-02-06 08:53] LABS: Troponin I 0.017 ng/mL (< 0.028)
[2021-02-06] MEDS ORDERED: Furosemide 40 MG/4 ML VIAL SLOW IVP SCH (09:00)
[2021-02-06] MEDS ORDERED: Losartan 25 MG TAB PO SCH (09:00)
[2021-02-06] MEDS ORDERED: Aspirin Chewable 81 MG TAB PO SCH (09:00)
[2021-02-06] MEDS ORDERED: Enoxaparin Sodium 40 MG/0.4 ML SYRINGE SC SCH (09:00)
[2021-02-06] MEDS: PARoxetine 20 MG TAB PO SCH (09:12)
[2021-02-06] MEDS: Carvedilol 6.25 MG TAB PO SCH ×2 (09:12→17:07)
[2021-02-06] MEDS: Spironolactone 25 MG TAB PO SCH (09:12)
[2021-02-06 10:36] LABS: Albumin 3.6 g/dL (3.4-4.8); Anion Gap 18 mmol/L (10-20); BUN (Urea Nitrogen) 35 mg/dL (9.8-20.1); BUN/Creatinine Ratio 26.72; Calc. Creatinine Clearance 64 mL/min (70-130); Calcium 10.1 mg/dL (7.8-10.44); Carbon Dioxide 26 mmol/L (23-31); Chloride 99 mmol/L (98-107); Glucose 110 mg/dL (83-110); Potassium 4.6 mmol/L (3.5-5.1); Sodium 138 mmol/L (136-145)
[2021-02-06 12:37] LABS: Troponin I 0.023 ng/mL (< 0.028)
[2021-02-06 16:13] LABS: Bilirubin Negative (Negative); Blood, Urine 1+ (Negative); Clarity Clear (Clear); Glucose, Urine (Dipstick) Normal (Negative); Ketone, Urine Negative (Negative); Leukocyte 75 Leu/uL (Negative); Nitrite Negative (Negative); Protein, Urine (Dipstick) Negative (Neg-Trace); Specific Gravity, Urine 1.008 (1.002-1.036); Squamous Epithelial 0-3 HPF (0-3); Urobilinogen Normal mg/dL (Less than 2)
[2021-02-06 16:24] LABS: Bacteria/HPF Rare-Few HPF (None Seen)
[2021-02-06 16:25] LABS: Urine Culture Reflex Yes Yes
[2021-02-06 16:31] LABS: Troponin I Less than 0.010 ng/mL (< 0.028)
[2021-02-06 16:39] LABS: Creatinine, Urine Less than 20.00 mg/dL (47-110); Protein, Urine Random Quant Less than 10 mg/dL (1-14); Sodium, Urine 87 mmol/L (Not Available); Urea Nitrogen, Random Urine 193 mg/dl
[2021-02-06] MEDS ORDERED: Warfarin Sodium 2 MG TAB PO SCH (17:00)
[2021-02-06 20:12] LABS: Anion Gap 13 mmol/L (10-20); BUN (Urea Nitrogen) 32 mg/dL (9.8-20.1); Calc. Creatinine Clearance 70 mL/min (70-130); Calcium 10.1 mg/dL (7.8-10.44); Carbon Dioxide 33 mmol/L (23-31); Chloride 100 mmol/L (98-107); Glucose 129 mg/dL (83-110); Potassium 4.4 mmol/L (3.5-5.1); Sodium 142 mmol/L (136-145)
[2021-02-06] MEDS: Furosemide 40 MG/4 ML VIAL SLOW IVP SCH (20:26)
[2021-02-06] MEDS: Melatonin 3 MG TAB PO PRN (22:33)
[2021-02-07] MEDS: Vancomycin 1.5 GRAM/300 ML BAG 1.5 GM in Premix Bag 1 BAG IVPB SCH (04:48)
[2021-02-07 04:50] LABS: ALT (SGPT) 13 U/L (8-55); AST (SGOT) 16 U/L (5-34); Albumin 3.6 g/dL (3.4-4.8); Alkaline Phosphatase 93 U/L (40-110); Anion Gap 11 mmol/L (10-20); BUN (Urea Nitrogen) 34 mg/dL (9.8-20.1); Bilirubin, Total 0.9 mg/dL (0.2-1.2); Calc. Creatinine Clearance 80 mL/min (70-130); Calcium 10.1 mg/dL (7.8-10.44); Carbon Dioxide 36 mmol/L (23-31); Chloride 98 mmol/L (98-107); Globulin 2.7 g/dL (2.4-3.5); Glucose 122 mg/dL (83-110); Magnesium 1.8 mg/dL (1.6-2.6); Potassium 4.2 mmol/L (3.5-5.1); Protein, Total 6.3 g/dL (5.8-8.1); Sodium 141 mmol/L (136-145)
[2021-02-07 04:52] LABS: INR-International Normal Ratio 3.1; PTT 59.5 sec (22.9-36.1); Prothrombin Time 32.5 sec (12.0-14.7)
[2021-02-07] MEDS: Levothyroxine Sodium 25 MCG TAB PO SCH (05:05)
[2021-02-07 05:17] LABS: #Lymphocytes 1.4 thou/uL (1.20-3.40); #Monocytes 0.5 thou/uL (0.11-0.59); #Neutrophils 9.9 thou/uL (1.40-6.50); %Basophils 0.2 % (0.0-1.0); %Eosinophils 0.4 % (0.0-10.0); %Lymphocytes 11.9 % (21.0-51.0); %Monocytes 3.9 % (0.0-10.0); %Neutrophils 83.7 % (42.0-75.0); Mean Corpuscular HGB CONC 29.2 g/dL (32.0-36.0); Mean Corpuscular Hemoglobin 23.1 pg (27.0-31.0); Mean Corpuscular Volume 79.1 fL (78.0-98.0); Platelet Count 233 thou/uL (130-400); RBC Distribution Width 22.7 % (11.5-14.5); Red Blood Cell (RBC) Count 6.07 mill/uL (4.20-5.40); White Blood Cell (WBC) Count 11.8 thou/uL (4.8-10.8)
[2021-02-07 05:18] LABS: Band 7 % (5-11); Lymphocytes 9 % (21-51); MDiff Complete? YES; Metamyelocyte 1 % (0-0); Monocytes 4 % (0-10); Neutrophil 78 % (42-75); Nucleated RBC 6 % (0); Platelet Morphology Comment Appears Adequate; Polychromasia SLIGHT = 2-3 cells (100X) (0-2/hpf); Reactive Lymphocytes 1 % (0-10)
[2021-02-07] MEDS: Aspirin 325 MG TAB PO SCH (07:57)
[2021-02-07] MEDS: Carvedilol 6.25 MG TAB PO SCH ×2 (07:57→17:23)
[2021-02-07] MEDS: Spironolactone 25 MG TAB PO SCH (07:58)
[2021-02-07] MEDS: PARoxetine 20 MG TAB PO SCH (07:58)
[2021-02-07] MEDS: Furosemide 40 MG/4 ML VIAL SLOW IVP SCH ×2 (07:58→20:36)
[2021-02-07] MEDS: Losartan 25 MG TAB PO SCH (09:08)
[2021-02-07] MEDS: Amlodipine 5 MG TAB PO SCH (09:09)
[2021-02-07 09:30] LABS: Reticulocyte Count 3.1 % (0.5-1.5)
[2021-02-07] MEDS: cefTRIAXone\\ROCEPHIN 1 GM in Sodium Chloride 0.9% 100 ML IVPB SCH (10:27)
[2021-02-07 11:40] LABS: Actual Bicarbonate (HCO3a) 39.2 mEq/L (22-28); Base Excess (BEa) 6.9 mEq/L (-2.0 to +3.0); Calcium, Ionized (arterial) 1.32 mmol/L (1.12-1.30); Carboxyhemoglobin (COHb) 1.8 gm% (0.0-3.0); Hemoglobin (Hb) 14.5 g/dL (12.0-16.0); Potassium - ABG Lab 4.33 mmol/L (3.70-5.30)
[2021-02-07 11:42] LABS: CO2 Tension 102.9 mmHg (35.0-45.0); O2 Tension (PaO2), arterial 56.3 mmHg (> 70.0)
[2021-02-07 11:43] LABS: Puncture Site RRA
[2021-02-07 11:44] LABS: ALV-art Gradient 86.015 mmHg (0-20)
[2021-02-07] MEDS ORDERED: Warfarin Sodium 0.5 MG HALF.TAB PO SCH (17:00)
[2021-02-07] MEDS ORDERED: Warfarin Sodium 1 MG TAB PO SCH ×2 (17:00)
[2021-02-08 03:53] LABS: Hemoglobin 13.5 g/dL (12.0-16.0); Platelet Count 170 thou/uL (130-400)
[2021-02-08 04:11] LABS: BUN (Urea Nitrogen) 28 mg/dL (9.8-20.1); Calc. Creatinine Clearance 100 mL/min (70-130); Calcium 10.2 mg/dL (7.8-10.44); Glucose 80 mg/dL (83-110); INR-International Normal Ratio 3.6; Prothrombin Time 36.3 sec (12.0-14.7)
[2021-02-08 04:23] LABS: Chloride 96 mmol/L (98-107); Potassium 3.9 mmol/L (3.5-5.1); Sodium 145 mmol/L (136-145)
[2021-02-08 04:25] LABS: Anion Gap 19 mmol/L (10-20); Carbon Dioxide 34 mmol/L (23-31)
[2021-02-08] MEDS: Levothyroxine Sodium 25 MCG TAB PO SCH (06:19)
[2021-02-08] MEDS: Losartan 25 MG TAB PO SCH (08:32)
[2021-02-08] MEDS: PARoxetine 20 MG TAB PO SCH (08:32)
[2021-02-08] MEDS: Aspirin 325 MG TAB PO SCH (08:32)
[2021-02-08] MEDS: Furosemide 40 MG/4 ML VIAL SLOW IVP SCH ×2 (08:33→21:03)
[2021-02-08] MEDS: Amlodipine 5 MG TAB PO SCH (08:33)
[2021-02-08] MEDS: Carvedilol 6.25 MG TAB PO SCH ×2 (08:33→16:26)
[2021-02-08] MEDS: Spironolactone 25 MG TAB PO SCH (08:33)
[2021-02-08] MEDS: cefTRIAXone\\ROCEPHIN 1 GM in Sodium Chloride 0.9% 100 ML IVPB SCH (08:47)
[2021-02-08 08:52] LABS: Actual Bicarbonate (HCO3a) 40.2 mEq/L (22-28); Base Excess (BEa) 11.3 mEq/L (-2.0 to +3.0); Calcium, Ionized (arterial) 1.26 mmol/L (1.12-1.30); Carboxyhemoglobin (COHb) 2.5 gm% (0.0-3.0); Hemoglobin (Hb) 14.4 g/dL (12.0-16.0); O2 Tension (PaO2), arterial 73.6 mmHg (> 70.0); pH, Arterial 7.36 (7.35-7.45)
[2021-02-08 09:26] LABS: ALV-art Gradient 83.825 mmHg (0-20); CO2 Tension 73.7 mmHg (35.0-45.0); Puncture Site LRA
[2021-02-08] MEDS ORDERED: Amlodipine 5 MG TAB PO SCH (10:00)
[2021-02-08] MEDS: Melatonin 3 MG TAB PO PRN (21:03)
[2021-02-09 04:06] LABS: INR-International Normal Ratio 2.4; Prothrombin Time 26.6 sec (12.0-14.7)
[2021-02-09 04:49] LABS: #Eosinphils 0.1 thou/uL (0.0-0.7); #Lymphocytes 0.9 thou/uL (1.20-3.40); #Monocytes 0.4 thou/uL (0.11-0.59); #Neutrophils 5.4 thou/uL (1.40-6.50); %Basophils 0.4 % (0.0-1.0); %Eosinophils 0.9 % (0.0-10.0); %Lymphocytes 12.8 % (21.0-51.0); Hemoglobin 13.4 g/dL (12.0-16.0); Mean Corpuscular HGB CONC 28.8 g/dL (32.0-36.0); Mean Corpuscular Hemoglobin 22.4 pg (27.0-31.0); Mean Corpuscular Volume 77.7 fL (78.0-98.0); Mean Platelet Volume 5.9 fL (7.4-10.4); Platelet Count 181 thou/uL (130-400); RBC Distribution Width 22.2 % (11.5-14.5); Red Blood Cell (RBC) Count 5.99 mill/uL (4.20-5.40); White Blood Cell (WBC) Count 6.6 thou/uL (4.8-10.8)
[2021-02-09 05:48] VITALS: BMI 38.2
[2021-02-09] MEDS: Levothyroxine Sodium 25 MCG TAB PO SCH (05:56)
[2021-02-09 07:57] LABS: Anion Gap 14 mmol/L (10-20); BUN (Urea Nitrogen) 25 mg/dL (9.8-20.1); Calc. Creatinine Clearance 103 mL/min (70-130); Calcium 9.7 mg/dL (7.8-10.44); Carbon Dioxide 37 mmol/L (23-31); Chloride 95 mmol/L (98-107); Glucose 89 mg/dL (83-110); Potassium 3.5 mmol/L (3.5-5.1); Sodium 142 mmol/L (136-145)
[2021-02-09] MEDS: Carvedilol 6.25 MG TAB PO SCH ×3 (08:36→18:50)
[2021-02-09] MEDS: Losartan 25 MG TAB PO SCH (08:36)
[2021-02-09] MEDS: PARoxetine 20 MG TAB PO SCH (08:36)
[2021-02-09] MEDS: Spironolactone 25 MG TAB PO SCH (08:37)
[2021-02-09] MEDS: Furosemide 40 MG/4 ML VIAL SLOW IVP SCH (08:37)
[2021-02-09] MEDS: Aspirin 325 MG TAB PO SCH (08:37)
[2021-02-09] MEDS ORDERED: Amlodipine 10 MG TAB PO SCH ×2 (09:00)
[2021-02-09] MEDS ORDERED: acetaZOLAMIDE Sodium 500 MG in Sodium Chloride 0.9% 50 ML IVPB SCH (11:00)
[2021-02-09] MEDS ORDERED: Potassium Chloride 20 MEQ TAB PO SCH (12:00)
[2021-02-10 06:05] LABS: #Eosinphils 0.1 thou/uL (0.0-0.7); #Lymphocytes 0.8 thou/uL (1.20-3.40); #Monocytes 0.1 thou/uL (0.11-0.59); %Basophils 0.1 % (0.0-1.0); %Eosinophils 1.1 % (0.0-10.0); %Lymphocytes 16.4 % (21.0-51.0); %Monocytes 1.7 % (0.0-10.0); %Neutrophils 80.8 % (42.0-75.0); Hemoglobin 14.4 g/dL (12.0-16.0); Mean Corpuscular HGB CONC 27.5 g/dL (32.0-36.0); Mean Corpuscular Hemoglobin 21.7 pg (27.0-31.0); Mean Corpuscular Volume 78.9 fL (78.0-98.0); Mean Platelet Volume 7.1 fL (7.4-10.4); Platelet Count 152 thou/uL (130-400); Red Blood Cell (RBC) Count 6.66 mill/uL (4.20-5.40); White Blood Cell (WBC) Count 4.9 thou/uL (4.8-10.8)
[2021-02-10] MEDS: Levothyroxine Sodium 25 MCG TAB PO SCH (06:10)
[2021-02-10 06:22] LABS: INR-International Normal Ratio 1.6; Prothrombin Time 19.5 sec (12.0-14.7)
[2021-02-10 06:25] LABS: Anion Gap 12 mmol/L (10-20); BUN (Urea Nitrogen) 22 mg/dL (9.8-20.1); Calc. Creatinine Clearance 0 mL/min (70-130); Calcium 9.8 mg/dL (7.8-10.44); Carbon Dioxide 36 mmol/L (23-31); Chloride 98 mmol/L (98-107); Glucose 102 mg/dL (83-110); Potassium 3.4 mmol/L (3.5-5.1); Sodium 143 mmol/L (136-145)
[2021-02-10] MEDS ORDERED: Potassium Chloride 20 MEQ TAB PO SCH ×2 (08:00→17:00)
[2021-02-10] MEDS: Aspirin 325 MG TAB PO SCH (08:25)
[2021-02-10] MEDS: Spironolactone 25 MG TAB PO SCH (08:26)
[2021-02-10] MEDS: Amlodipine 5 MG TAB PO SCH (08:26)
[2021-02-10] MEDS: Carvedilol 6.25 MG TAB PO SCH ×2 (08:26→16:14)
[2021-02-10] MEDS: Losartan 25 MG TAB PO SCH (08:28)
[2021-02-10] MEDS: PARoxetine 20 MG TAB PO SCH (08:30)
[2021-02-10] MEDS ORDERED: acetaZOLAMIDE Sodium 500 MG in Sodium Chloride 0.9% 50 ML IVPB SCH (09:00)
[2021-02-10] MEDS ORDERED: Apixaban 2.5 MG TAB PO SCH (10:45)
[2021-02-10] MEDS: Aspirin Chewable 81 MG TAB PO SCH (11:00)
[2021-02-10] MEDS: Apixaban 5 MG TAB PO SCH (20:20)
[2021-02-11 05:37] LABS: INR-International Normal Ratio 1.5; Prothrombin Time 18.1 sec (12.0-14.7)
[2021-02-11 05:47] LABS: Anion Gap 17 mmol/L (10-20); BUN (Urea Nitrogen) 22 mg/dL (9.8-20.1); Calc. Creatinine Clearance 0 mL/min (70-130); Calcium 10.3 mg/dL (7.8-10.44); Carbon Dioxide 28 mmol/L (23-31); Chloride 104 mmol/L (98-107); Glucose 99 mg/dL (83-110); Sodium 145 mmol/L (136-145)
[2021-02-11 06:09] LABS: #Eosinphils 0.1 thou/uL (0.0-0.7); #Lymphocytes 0.9 thou/uL (1.20-3.40); #Monocytes 0.2 thou/uL (0.11-0.59); #Neutrophils 4.4 thou/uL (1.40-6.50); %Basophils 0.6 % (0.0-1.0); %Eosinophils 1.6 % (0.0-10.0); %Lymphocytes 15.8 % (21.0-51.0); %Monocytes 3.7 % (0.0-10.0); %Neutrophils 78.2 % (42.0-75.0); Anisocytosis SLIGHT = 6-15 cells (100X) (0-5/hpf); MDiff Complete? YES; Mean Corpuscular HGB CONC 28.2 g/dL (32.0-36.0); Mean Corpuscular Hemoglobin 22.6 pg (27.0-31.0); Mean Corpuscular Volume 80.2 fL (78.0-98.0); Mean Platelet Volume 8.5 fL (7.4-10.4); Platelet Count 142 thou/uL (130-400); RBC Distribution Width 23.8 % (11.5-14.5); Red Blood Cell (RBC) Count 7.05 mill/uL (4.20-5.40); White Blood Cell (WBC) Count 5.6 thou/uL (4.8-10.8)
[2021-02-11] MEDS: Levothyroxine Sodium 25 MCG TAB PO SCH (06:38)
[2021-02-11] MEDS ORDERED: Spironolactone 25 MG TAB PO SCH (09:00)
[2021-02-11] MEDS ORDERED: Aspirin 325 MG TAB PO SCH (09:00)
[2021-02-11] MEDS: Amlodipine 5 MG TAB PO SCH (09:13)
[2021-02-11] MEDS: Carvedilol 6.25 MG TAB PO SCH (09:14)
[2021-02-11] MEDS: Apixaban 5 MG TAB PO SCH (09:14)
[2021-02-11] MEDS: Aspirin Chewable 81 MG TAB PO SCH (09:14)
[2021-02-11] MEDS: PARoxetine 20 MG TAB PO SCH (09:14)
[2021-02-11] MEDS: Losartan 25 MG TAB PO SCH (09:14)
[2021-02-11 17:36] VITALS: BP 113/58; TEMP 98.2
== END 2021-02-11 17:44 | disposition home or self-care (01) | DRG 291 ==
LOC: ERS 02:04 → ERHOLD 02:47 → 2NO 13:54 → OBSVTOIN 02-07 11:47 → CCU 02-07 12:22 → 2SW 02-09 09:56
PROVIDERS: ADMIT Internal Medicine; ATTEND Internal Medicine
PROC: 5A09557 Assistance with Respiratory Ventilation, Greater than 96 Consecutive Hours, Continuous Positive Airway Pressure (ICD-10-PCS; principal; 2021-02-07)
DX: I13.0 Hypertensive heart and chronic kidney disease with heart failure and stage 1 through stage 4 chronic kidney disease, or unspecified chronic kidney disease (principal); J96.01 Acute respiratory failure with hypoxia; G93.41 Metabolic encephalopathy; I50.33 Acute on chronic diastolic (congestive) heart failure; J96.02 Acute respiratory failure with hypercapnia; N17.9 Acute kidney failure, unspecified; E87.3 Alkalosis; Z68.1 Body mass index [BMI] 19.9 or less, adult; E78.5 Hyperlipidemia, unspecified; E03.9 Hypothyroidism, unspecified; F32.9 Major depressive disorder, single episode, unspecified; I25.10 Atherosclerotic heart disease of native coronary artery without angina pectoris; E78.00 Pure hypercholesterolemia, unspecified; E66.01 Morbid (severe) obesity due to excess calories; G47.33 Obstructive sleep apnea (adult) (pediatric); R71.8 Other abnormality of red blood cells; N18.9 Chronic kidney disease, unspecified; I50.810 Right heart failure, unspecified; I27.29 Other secondary pulmonary hypertension; T50.1X5A Adverse effect of loop [high-ceiling] diuretics, initial encounter; Z86.73 Personal history of transient ischemic attack (TIA), and cerebral infarction without residual deficits; Z88.5 Allergy status to narcotic agent; Z88.8 Allergy status to other drugs, medicaments and biological substances; Z79.01 Long term (current) use of anticoagulants; Z79.899 Other long term (current) drug therapy; Z90.710 Acquired absence of both cervix and uterus; Z93.0 Tracheostomy status; Z99.89 Dependence on other enabling machines and devices; Z87.01 Personal history of pneumonia (recurrent); Z78.1 Physical restraint status
CPT/HCPCS: 36415; 36600; 71045; 80048; 80053; 80069; 81001; 82570; 82805; 83735; 83880; 84145; 84156; 84300; 84443; 84484; 84540; 85014; 85018; 85025; 85046; 85049; 85060; 85610; 85730; 87086; 93306; 93798; 94660; 96374; 96375; 96376; 99285; G0378; J0360; J0696; J1120; J1940; J3370; J3490

== ENCOUNTER 2021-05-10 07:47 | Outpatient (CLI) | payer MEDICARE | END 2021-05-10 07:48 | disposition home or self-care (01) | LOC: RAD 07:47 | PROVIDERS: ATTEND Internal Medicine Critical Care Medicine | DX: R06.00 Dyspnea, unspecified (principal); I51.7 Cardiomegaly; R09.89 Other specified symptoms and signs involving the circulatory and respiratory systems | CPT/HCPCS: 71046 ==

== ENCOUNTER 2021-10-10 11:15 | Outpatient (CLI) | payer OTHER | END 2021-10-10 11:16 | disposition home or self-care (01) | LOC: RAD 11:15 | PROVIDERS: ATTEND Internal Medicine Critical Care Medicine | DX: R06.00 Dyspnea, unspecified (principal); I51.7 Cardiomegaly; R91.8 Other nonspecific abnormal finding of lung field | CPT/HCPCS: 71046 ==

== ENCOUNTER 2022-03-17 09:23 | Outpatient (CLI) | payer OTHER | END 2022-03-17 09:24 | disposition home or self-care (01) | LOC: RAD 09:23 | PROVIDERS: ATTEND Internal Medicine Critical Care Medicine | DX: R06.09 Other forms of dyspnea (principal); I51.7 Cardiomegaly | CPT/HCPCS: 71046 ==

== ENCOUNTER 2022-06-17 14:54 | Inpatient (IN) | payer OTHER ==
[2022-06-17 16:16] LABS: #Eosinphils 0.1 thou/uL (0.0-0.7); #Lymphocytes 0.7 thou/uL (1.20-3.40); #Monocytes 0.3 thou/uL (0.11-0.59); %Basophils 0.2 % (0.0-1.0); %Eosinophils 1.8 % (0.0-10.0); %Monocytes 4.2 % (0.0-10.0); %Neutrophils 81.8 % (42.0-75.0); Hemoglobin 11.9 g/dL (12.0-16.0); Mean Corpuscular HGB CONC 32.8 g/dL (32.0-36.0); Mean Corpuscular Hemoglobin 26.9 pg (27.0-31.0); Mean Corpuscular Volume 82.1 fl (78.0-98.0); Mean Platelet Volume 11.1 fL (7.4-10.4); Platelet Count 174 10x3/uL (130-400); RBC Distribution Width 17.3 % (11.5-14.5); White Blood Cell (WBC) Count 6.1 10x3/uL (4.8-10.8)
[2022-06-17 16:39] LABS: ALT (SGPT) 12 U/L (8-55); AST (SGOT) 19 U/L (5-34); Albumin 3.9 g/dL (3.4-4.8); Alkaline Phosphatase 85 U/L (40-110); Anion Gap 14 mmol/L (10-20); BUN (Urea Nitrogen) 15 mg/dL (9.8-20.1); Bilirubin, Total 0.7 mg/dL (0.2-1.2); Calc. Creatinine Clearance 0 mL/min (70-130); Calcium 9.6 mg/dL (7.8-10.44); Carbon Dioxide 24 mmol/L (23-31); Chloride 106 mmol/L (98-107); Estimated GFR 84; Globulin 2.3 g/dL (2.4-3.5); Glucose 87 mg/dL (83-110); Protein, Total 6.2 g/dL (5.8-8.1); Sodium 140 mmol/L (136-145)
[2022-06-17 17:06] LABS: Troponin I 0.011 ng/mL (< 0.028)
[2022-06-17] MEDS ORDERED: Acetaminophen 325 MG TAB PO PRN (17:16)
[2022-06-17 22:32] VITALS: BMI 35.9
[2022-06-17] MEDS: Simvastatin 10 MG TAB PO SCH (22:37)
[2022-06-17] MEDS: Amitriptyline HCl 25 MG TAB PO SCH (22:37)
[2022-06-18 05:35] LABS: #Eosinphils 0.1 thou/uL (0.0-0.7); #Lymphocytes 0.8 thou/uL (1.20-3.40); #Monocytes 0.4 thou/uL (0.11-0.59); #Neutrophils 4.3 thou/uL (1.40-6.50); %Basophils 0.4 % (0.0-1.0); %Eosinophils 2.1 % (0.0-10.0); %Lymphocytes 13.9 % (21.0-51.0); %Monocytes 6.9 % (0.0-10.0); %Neutrophils 76.8 % (42.0-75.0); Hemoglobin 11.4 g/dL (12.0-16.0); Mean Corpuscular HGB CONC 32.1 g/dL (32.0-36.0); Mean Corpuscular Hemoglobin 26.5 pg (27.0-31.0); Mean Corpuscular Volume 82.5 fl (78.0-98.0); Mean Platelet Volume 11.1 fL (7.4-10.4); Platelet Count 178 10x3/uL (130-400); RBC Distribution Width 17.6 % (11.5-14.5); Red Blood Cell (RBC) Count 4.29 mill/uL (4.20-5.40); White Blood Cell (WBC) Count 5.6 10x3/uL (4.8-10.8)
[2022-06-18] MEDS ORDERED: hydrALAZINE 20 MG/ML VIAL SLOW IVP PRN (05:48)
[2022-06-18 05:54] LABS: ALT (SGPT) 14 U/L (8-55); AST (SGOT) 18 U/L (5-34); Albumin 3.7 g/dL (3.4-4.8); Alkaline Phosphatase 79 U/L (40-110); Anion Gap 14 mmol/L (10-20); BUN (Urea Nitrogen) 11 mg/dL (9.8-20.1); Bilirubin, Total 0.7 mg/dL (0.2-1.2); Calc. Creatinine Clearance 107 mL/min (70-130); Calcium 9.6 mg/dL (7.8-10.44); Carbon Dioxide 25 mmol/L (23-31); Chloride 105 mmol/L (98-107); Estimated GFR 90; Globulin 2.4 g/dL (2.4-3.5); Glucose 87 mg/dL (83-110); Potassium 3.4 mmol/L (3.5-5.1); Protein, Total 6.1 g/dL (5.8-8.1); Sodium 141 mmol/L (136-145)
[2022-06-18] MEDS: Levothyroxine Sodium 25 MCG TAB PO SCH (06:36)
[2022-06-18] MEDS ORDERED: Carvedilol 6.25 MG TAB PO SCH (08:00)
[2022-06-18] MEDS: Losartan 25 MG TAB PO SCH (09:10)
[2022-06-18] MEDS: Spironolactone 25 MG TAB PO SCH (09:10)
[2022-06-18] MEDS: PARoxetine 20 MG TAB PO SCH (09:10)
[2022-06-18] MEDS: Carvedilol 25 MG TAB PO SCH ×2 (09:10→18:02)
[2022-06-18] MEDS: Simvastatin 10 MG TAB PO SCH (21:38)
[2022-06-18] MEDS: Amitriptyline HCl 25 MG TAB PO SCH (21:38)
[2022-06-19 05:33] LABS: #Eosinphils 0.1 thou/uL (0.0-0.7); #Lymphocytes 0.7 thou/uL (1.20-3.40); #Monocytes 0.2 thou/uL (0.11-0.59); #Neutrophils 4.1 thou/uL (1.40-6.50); %Basophils 0.1 % (0.0-1.0); %Eosinophils 1.1 % (0.0-10.0); %Lymphocytes 13.4 % (21.0-51.0); %Monocytes 4.6 % (0.0-10.0); %Neutrophils 80.7 % (42.0-75.0); Hemoglobin 11.8 g/dL (12.0-16.0); Mean Corpuscular HGB CONC 31.7 g/dL (32.0-36.0); Mean Corpuscular Hemoglobin 26.1 pg (27.0-31.0); Mean Corpuscular Volume 82.2 fl (78.0-98.0); Mean Platelet Volume 6.2 fL (7.4-10.4); Platelet Count 179 10x3/uL (130-400); RBC Distribution Width 17.3 % (11.5-14.5); Red Blood Cell (RBC) Count 4.54 mill/uL (4.20-5.40); White Blood Cell (WBC) Count 5.1 10x3/uL (4.8-10.8)
[2022-06-19 05:41] LABS: ALT (SGPT) 15 U/L (8-55); AST (SGOT) 18 U/L (5-34); Albumin 3.9 g/dL (3.4-4.8); Alkaline Phosphatase 88 U/L (40-110); Anion Gap 14 mmol/L (10-20); BUN (Urea Nitrogen) 12 mg/dL (9.8-20.1); Bilirubin, Total 0.7 mg/dL (0.2-1.2); Calc. Creatinine Clearance 105 mL/min (70-130); Calcium 9.8 mg/dL (7.8-10.44); Carbon Dioxide 24 mmol/L (23-31); Chloride 106 mmol/L (98-107); Estimated GFR 90; Globulin 2.4 g/dL (2.4-3.5); Glucose 109 mg/dL (83-110); Potassium 3.7 mmol/L (3.5-5.1); Protein, Total 6.3 g/dL (5.8-8.1); Sodium 140 mmol/L (136-145)
[2022-06-19] MEDS: Levothyroxine Sodium 25 MCG TAB PO SCH (06:42)
[2022-06-19] MEDS: PARoxetine 20 MG TAB PO SCH (09:49)
[2022-06-19] MEDS: Carvedilol 25 MG TAB PO SCH ×2 (09:49→17:55)
[2022-06-19] MEDS: Losartan 25 MG TAB PO SCH (09:49)
[2022-06-19] MEDS: Spironolactone 25 MG TAB PO SCH (09:49)
[2022-06-19] MEDS: Amitriptyline HCl 25 MG TAB PO SCH (21:19)
[2022-06-19] MEDS: Simvastatin 10 MG TAB PO SCH (21:19)
[2022-06-20 05:41] LABS: #Eosinphils 0.1 thou/uL (0.0-0.7); #Lymphocytes 0.7 thou/uL (1.20-3.40); #Monocytes 0.3 thou/uL (0.11-0.59); #Neutrophils 3.2 thou/uL (1.40-6.50); %Basophils 0.2 % (0.0-1.0); %Eosinophils 1.6 % (0.0-10.0); %Lymphocytes 17.2 % (21.0-51.0); %Monocytes 7.1 % (0.0-10.0); %Neutrophils 73.8 % (42.0-75.0); Hemoglobin 11.6 g/dL (12.0-16.0); Mean Corpuscular HGB CONC 32.1 g/dL (32.0-36.0); Mean Corpuscular Hemoglobin 26.8 pg (27.0-31.0); Mean Corpuscular Volume 83.4 fl (78.0-98.0); Mean Platelet Volume 10.9 fL (7.4-10.4); Platelet Count 195 10x3/uL (130-400); RBC Distribution Width 17.2 % (11.5-14.5); Red Blood Cell (RBC) Count 4.33 mill/uL (4.20-5.40); White Blood Cell (WBC) Count 4.3 10x3/uL (4.8-10.8)
[2022-06-20] MEDS: Levothyroxine Sodium 25 MCG TAB PO SCH (05:56)
[2022-06-20 06:02] LABS: Anion Gap 13 mmol/L (10-20); BUN (Urea Nitrogen) 14 mg/dL (9.8-20.1); Calc. Creatinine Clearance 102 mL/min (70-130); Carbon Dioxide 27 mmol/L (23-31); Chloride 105 mmol/L (98-107); Potassium 3.8 mmol/L (3.5-5.1); Sodium 141 mmol/L (136-145)
[2022-06-20 06:03] LABS: ALT (SGPT) 11 U/L (8-55); AST (SGOT) 19 U/L (5-34); Albumin 3.8 g/dL (3.4-4.8); Alkaline Phosphatase 82 U/L (40-110); Bilirubin, Total 0.5 mg/dL (0.2-1.2); Calcium 9.5 mg/dL (7.8-10.44); Estimated GFR 89; Globulin 2.3 g/dL (2.4-3.5); Glucose 101 mg/dL (83-110); Protein, Total 6.1 g/dL (5.8-8.1)
[2022-06-20] MEDS: Carvedilol 25 MG TAB PO SCH ×2 (08:43→17:49)
[2022-06-20] MEDS: PARoxetine 20 MG TAB PO SCH (08:44)
[2022-06-20] MEDS: Losartan 25 MG TAB PO SCH (08:44)
[2022-06-20] MEDS: Spironolactone 25 MG TAB PO SCH (08:44)
[2022-06-20] MEDS ORDERED: Benzonatate 100 MG CAP PO PRN (16:07)
[2022-06-20] MEDS: Simvastatin 10 MG TAB PO SCH (20:58)
[2022-06-20] MEDS: Amitriptyline HCl 25 MG TAB PO SCH (20:58)
[2022-06-21] MEDS: Levothyroxine Sodium 25 MCG TAB PO SCH (06:34)
[2022-06-21] MEDS: Carvedilol 25 MG TAB PO SCH ×2 (09:05→17:20)
[2022-06-21] MEDS: Spironolactone 25 MG TAB PO SCH (09:06)
[2022-06-21] MEDS: Losartan 25 MG TAB PO SCH (09:06)
[2022-06-21] MEDS: PARoxetine 20 MG TAB PO SCH (09:06)
[2022-06-21] MEDS: Simvastatin 10 MG TAB PO SCH (20:20)
[2022-06-21] MEDS: Amitriptyline HCl 25 MG TAB PO SCH (20:20)
[2022-06-22] MEDS: Levothyroxine Sodium 25 MCG TAB PO SCH (05:20)
[2022-06-22 05:54] LABS: #Eosinphils 0.1 thou/uL (0.0-0.7); #Lymphocytes 0.8 thou/uL (1.20-3.40); #Monocytes 0.4 thou/uL (0.11-0.59); %Basophils 0.2 % (0.0-1.0); %Eosinophils 1.3 % (0.0-10.0); %Lymphocytes 15.1 % (21.0-51.0); %Monocytes 6.8 % (0.0-10.0); %Neutrophils 76.6 % (42.0-75.0); Hemoglobin 11.5 g/dL (12.0-16.0); Mean Corpuscular Hemoglobin 26.2 pg (27.0-31.0); Mean Corpuscular Volume 81.9 fl (78.0-98.0); Mean Platelet Volume 6.4 fL (7.4-10.4); Platelet Count 164 10x3/uL (130-400); RBC Distribution Width 17.4 % (11.5-14.5); White Blood Cell (WBC) Count 5.3 10x3/uL (4.8-10.8)
[2022-06-22] MEDS ORDERED: Empagliflozin 10 MG TAB PO SCH (09:00)
[2022-06-22] MEDS: Losartan 25 MG TAB PO SCH (09:37)
[2022-06-22] MEDS: Carvedilol 25 MG TAB PO SCH ×2 (09:38→17:05)
[2022-06-22] MEDS: Spironolactone 25 MG TAB PO SCH (09:38)
[2022-06-22] MEDS: PARoxetine 20 MG TAB PO SCH (09:39)
[2022-06-22 16:21] VITALS: TEMP 97.9
[2022-06-22 17:05] VITALS: BP 145/60
== END 2022-06-22 18:27 | disposition home or self-care (01) | DRG 176 ==
LOC: ERS 14:54 → ERHOLD 16:35 → NEURO 19:09 → OBSVTOIN 06-19 09:02
PROVIDERS: ADMIT Family Medicine; ATTEND Family Medicine
DX: I26.99 Other pulmonary embolism without acute cor pulmonale (principal); I50.32 Chronic diastolic (congestive) heart failure; J96.12 Chronic respiratory failure with hypercapnia; I11.0 Hypertensive heart disease with heart failure; I27.20 Pulmonary hypertension, unspecified; G47.33 Obstructive sleep apnea (adult) (pediatric); E03.9 Hypothyroidism, unspecified; F32.A Depression, unspecified; E87.6 Hypokalemia; R91.8 Other nonspecific abnormal finding of lung field; M19.90 Unspecified osteoarthritis, unspecified site; Z88.8 Allergy status to other drugs, medicaments and biological substances; Z79.01 Long term (current) use of anticoagulants; Z79.890 Hormone replacement therapy; Z79.899 Other long term (current) drug therapy; Z90.710 Acquired absence of both cervix and uterus
CPT/HCPCS: 36415; 80053; 85025; 85520; 93306; 93970; 94660; 99285; J0360; J1650

== ENCOUNTER 2022-07-17 08:22 | Outpatient (CLI) | payer OTHER | END 2022-07-17 08:23 | disposition home or self-care (01) | LOC: CT 08:22 | PROVIDERS: ATTEND Internal Medicine Critical Care Medicine | DX: R91.1 Solitary pulmonary nodule (principal); R16.1 Splenomegaly, not elsewhere classified; K68.9 Other disorders of retroperitoneum | CPT/HCPCS: 36415; 71250; 85025; 85260 ==

== ENCOUNTER 2023-11-02 10:23 | Outpatient (CLI) | payer OTHER | END 2023-11-02 10:24 | disposition home or self-care (01) | LOC: RAD 10:23 | PROVIDERS: ATTEND Internal Medicine Critical Care Medicine | DX: R06.00 Dyspnea, unspecified (principal); J98.4 Other disorders of lung | CPT/HCPCS: 71046 ==

== ENCOUNTER 2023-12-03 09:34 | Outpatient (CLI) | payer OTHER | END 2023-12-03 09:35 | disposition home or self-care (01) | LOC: BICMAMMO 09:34 | PROVIDERS: ATTEND Family Medicine | DX: Z13.820 Encounter for screening for osteoporosis (principal); Z78.0 Asymptomatic menopausal state | CPT/HCPCS: 77080 ==

== ENCOUNTER 2024-05-10 16:20 | Inpatient (IN) | payer OTHER ==
[2024-05-10] MEDS: Dabigatran 150 mg Capsule PO SCH (20:46)
[2024-05-10] MEDS: Carvedilol 6.25 MG TAB PO SCH (20:47)
[2024-05-10] MEDS: Amitriptyline HCl 25 MG TAB PO SCH (20:47)
[2024-05-10 21:10] LABS: Troponin I Less than 0.010 ng/mL (< 0.028)
[2024-05-10] MEDS: Losartan 25 MG TAB PO SCH (21:15)
[2024-05-11 04:54] LABS: Hematocrit 33.1 % (36.0-47.0); Hemoglobin 9.7 g/dL (12.0-16.0); Mean Corpuscular HGB CONC 29.3 g/dL (32.0-36.0); Mean Corpuscular Hemoglobin 25.1 pg (27.0-31.0); Mean Corpuscular Volume 85.8 fL (78.0-98.0); Platelet Count 145 10x3/uL (130-400); RBC Distribution Width 19.9 % (11.5-14.5); Red Blood Cell (RBC) Count 3.86 mill/uL (4.20-5.40)
[2024-05-11 05:01] LABS: Anion Gap 13 mmol/L (10-20); BUN (Urea Nitrogen) 23 mg/dL (9.8-20.1); Calc. Creatinine Clearance 67 mL/min (70-130); Calcium 8.7 mg/dL (7.8-10.44); Carbon Dioxide 26 mmol/L (23-31); Chloride 106 mmol/L (98-107); Estimated GFR 64; Glucose 92 mg/dL (83-110); Potassium 3.8 mmol/L (3.5-5.1); Sodium 141 mmol/L (136-145)
[2024-05-11 05:28] LABS: Band 14 % (5-11); Elliptocytes SLIGHT = 2-5 cells HPF (0-1); Eosinophils 2 % (0-10); Hypochromia SLIGHT = 6-15 cells HPF (0-5); Lymphocytes 14 % (21-51); Monocytes 7 % (0-10); Neutrophil 63 % (42-75); Nucleated RBC (Manual Ct) 2 % (0); Platelet Adequacy Comment Platelets Normal; Polychromasia SLIGHT = 2-3 cells HPF (0-2)
[2024-05-11] MEDS: Levothyroxine Sodium 25 MCG TAB PO SCH (05:45)
[2024-05-11] MEDS: Furosemide 40 MG (4 mL) VIAL SLOW IVP SCH (08:15)
[2024-05-11] MEDS: Empagliflozin 10 MG TAB PO SCH (08:22)
[2024-05-11] MEDS: PARoxetine 20 MG TAB PO SCH (08:29)
[2024-05-11] MEDS: Carvedilol 6.25 MG TAB PO SCH (08:30)
[2024-05-11] MEDS: Spironolactone 25 MG TAB PO SCH (08:30)
[2024-05-11] MEDS: Losartan 25 MG TAB PO SCH (08:30)
[2024-05-11] MEDS ORDERED: FLU (Fluad Triv) TS24-25 (65UP)/MF59C/PF 45 MCG/0.5 ML Syringe IM ONE (09:00)
[2024-05-12] MEDS: Furosemide 40 MG TAB PO SCH (08:31)
[2024-05-12 14:18] LABS: Iron 48 ug/dL (50-170); Iron Binding Capacity, Total 270 mcg/dL (265-497); Transferrin, Serum 216 mg/dL (173-360)
[2024-05-12 18:33] VITALS: BP 145/72; TEMP 98.3
[2024-05-12] MEDS ORDERED: Atorvastatin Calcium 10 MG TAB PO SCH (21:00)
[2024-05-13] MEDS ORDERED: Spironolactone 25 MG TAB PO SCH (08:00)
== END 2024-05-12 18:18 | disposition home or self-care (01) | DRG 291 ==
LOC: MSONC 16:20 → OBSVTOIN 05-12 10:38
PROVIDERS: ADMIT Family Medicine; ATTEND Family Medicine
DX: I11.0 Hypertensive heart disease with heart failure (principal); I50.33 Acute on chronic diastolic (congestive) heart failure; J96.21 Acute and chronic respiratory failure with hypoxia; E78.5 Hyperlipidemia, unspecified; G47.33 Obstructive sleep apnea (adult) (pediatric); E03.9 Hypothyroidism, unspecified; Z88.1 Allergy status to other antibiotic agents; Z88.5 Allergy status to narcotic agent; Z88.8 Allergy status to other drugs, medicaments and biological substances; Z79.890 Hormone replacement therapy; Z79.899 Other long term (current) drug therapy; Z79.84 Long term (current) use of oral hypoglycemic drugs; Z86.718 Personal history of other venous thrombosis and embolism; Z86.73 Personal history of transient ischemic attack (TIA), and cerebral infarction without residual deficits; Z90.710 Acquired absence of both cervix and uterus; Z90.49 Acquired absence of other specified parts of digestive tract; Z99.89 Dependence on other enabling machines and devices
CPT/HCPCS: 36415; 80048; 82728; 83540; 83550; 84466; 85025; 85046; 93306; 96374; G0378; J1940